=== PATIENT | male | born 1960 | race Caucasian/White ===

== ENCOUNTER 2021-06-01 18:40 | Observation (INO) | payer OTHER ==
[~2021-06-01] VITALS: Ht 167.6 cm; Wt 89.7 kg
[~2021-06-01 18:40] MED LIST: ALBU90OI INH; ALBU90OI6 INH; Albuterol2.5 MG/0.5 INH; FLUSAL1005 INH; HYDACE5 PO; IBUP800 PO; Monodox100 MG PO; NAPR500 PO; Naprosyn500 MG PO; Prednisone20 MG PO; QUET100 PO; TRAZ50 PO; Ultram50 MG PO
[2021-06-01 21:30] LABS: Calcium, Ionized (POC) 1.14 mmol/L (1.10-1.46); Chloride (POC) 104 mmol/L (98-108); Creatinine (POC) 1.4 mg/dL (0.8-1.3); Glucose (ISTAT POC) 100 mg/dL (70-99); Hemoglobin (POC) 14.6 g/dL (13.5-17.5); Potassium (POC) 4.5 mmol/L (3.5-5.5); Sodium (POC) 137 mmol/L (135-148); Total CO2 (POC) 23 mmol/L (21-32)
--- NOTE | 2021-06-02 01:00 | NUR ---
ADMIT ARRIVE TO 325 @3624 VIA W/C SBY ASSIST TO BED. ADMITTED FOR L SIDE RIB FX. ORIENTED TO & CALL LIGHT.
--- NOTE | 2021-06-02 04:56 | NUR ---
SHIFT SUMMARY ADMITTED FOR MULTIPLE RIB FX L SIDE FROM SLIP/FALL IN [place] 2 DAYS PRIOR. AOX4. VSS. TREMORS TO BUE, ANXIOUS, PACING AROUND RM, FIGETING, UNABLE TO SIT STILL, DIAPHORETIC. STATES HE DRINKS ROUGHLY 5 BEERS QOD & LAST DRINK WAS 06/01/21. REPORTS 8/10 SHARP PAIN L SIDE UNDER ARM RADIATING TO L BACK. INFORMED DR ULLOA & HE ORDERED FENTANYL, PT STATED VERY LITTLE TO NO RELIEF, HOWEVER ABLE TO REST COMFORTABLY. PAIN c DEEP BREATHS & COUGHING. INSPIRATORY & EXPIRATORY COARSE WHEEZES HEARD T/O LUNGS, HX ASTHMA, DR ULLOA ORDERED PRN BREATHING TX. DENIES N/V. ABD FIRM ROUND DISTENDED, HAS BEEN NPO PER ORDERS. CALL LIGHT IN REACH & PT ABLE TO MAKE NEEDS KNOWN. WCTM.
--- NOTE | 2021-06-02 17:42 | NUR ---
SHIFT SUMMARY PT AxOx4. PLEASANT AND COOPERATIVE WITH CARE. PT HAD Q4 CIWA CHECKS. PT REPORTS FEELING ANXIOUS AND PAINFUL T/O THIS SHIFT. MEDICATED PER EMAR. PT ALSO USED ICE FOR RIB FX PAIN. PER DR WILKINS, PT WILL LIKELY DC TOMORROW. PHYSICAL THERAPY CLEARED PATIENT FROM THERAPY. PT INDEPENDENT IN THE ROOM. PT REQUESTED BREATHING TX FOR SOME SOB AND WHEEZING. RT CALLED FOR BREATHING TX. PT HAS HX OF ASTHMA. VITALS REVIEWED. PT CURRENTLY RESTING IN CHAIR WATCHING TV. CALL LIGHT IN REACH. PT DENIES ANY NEEDS AT THIS TIME.
--- NOTE | 2021-06-03 05:31 | NUR ---
SHIFT SUMMARY AOX4. VSS. REPORTS CONSTANT 7-8/10 PAIN IN L SIDE WHERE RIB FX ARE, MEDICATED PER EMAR ORDERS FOR PAIN & PT APPLIED ICE. CIWA 8-10 THIS SHIFT, MEDICATED 2X c ATIVAN, HAS TREMORS, ANXIOUSNESS & RESTLESSNESS. EXPIRATORY WHEEZES, RECIEVED BREATHING TX PER RT, SPO2 >90% ON RA. POSSIBLE DC HOME TODAY. CALL LIGHT IN REACH. WCTM.
[2021-06-03 08:12] LABS: BASOPHILS ABSOLUTE AUTO 0.04 K/mm3 (0.00-0.23); BASOPHILS PERCENT AUTO 1 % (0-2); EOSINOPHILS ABSOLUTE AUTO 0.41 K/mm3 (0.00-0.68); EOSINOPHILS PERCENT AUTO 5 % (0-6); Hematocrit 36.4 % (37.0-53.0); Hemoglobin 12.3 g/dL (13.5-17.5); IMMATURE GRAN ABSOLUTE AUTO 0.06 K/mm3 (0.00-0.10); IMMATURE GRAN PERCENT AUTO 1 % (0-1); LYMPHOCYTES ABSOLUTE AUTO 0.81 K/mm3 (0.84-5.20); LYMPHOCYTES PERCENT AUTO 10 % (21-46); MONOCYTES ABSOLUTE AUTO 0.79 K/mm3 (0.16-1.47); MONOCYTES PERCENT AUTO 9 % (4-13); Mean Corpuscular HGB 34.7 pg (26.0-34.0); Mean Corpuscular HGB Conc 33.8 g/dL (31.5-36.5); Mean Corpuscular Volume 103 fL (80-100); Mean Platelet Volume 10.7 fL (9.1-12.4); NEUTROPHILS ABSOLUTE AUTO 6.34 K/mm3 (1.96-9.15); NEUTROPHILS PERCENT AUTO 75 % (41-73); Platelet Count 266 K/mm3 (150-400); RDW Standard Deviation 57.1 fL (35.1-46.3); Red Blood Cell Count 3.54 M/mm3 (4.30-5.90); White Blood Cell Count 8.45 K/mm3 (4.00-11.30)
[2021-06-03 08:46] LABS: Alanine Aminotransfer (ALT/SGP 44 U/L (12-78); Albumin, Blood 3.3 g/dL (3.4-5.0); Albumin/Globulin Ratio 0.9 (0.8-1.8); Alk Phos 91 U/L (50-136); Anion Gap 3 mmol/L (6-16); Aspartate Aminotrans (AST/SGOT 24 U/L (12-37); Bilirubin, Total 0.4 mg/dL (0.1-1.0); Blood Urea Nitrogen 14 mg/dL (8-24); Bun/Creatinine Ratio 16.9 (12.0-20.0); CO2, Blood 29 mmol/L (21-32); Calcium, Blood 8.8 mg/dL (8.5-10.1); Chloride, Blood 99 mmol/L (98-108); Creatinine, Blood 0.83 mg/dL (0.60-1.20); Globulin, Blood 3.8 g/dL (2.2-4.0); Glomerular Filtration Rate >60 (60-); Glucose, Blood 106 mg/dL (70-99); Magnesium, Blood 1.8 mg/dL (1.6-2.4); Phosphorus, Blood 3.2 mg/dL (2.5-4.9); Sodium, Blood 131 mmol/L (136-145); Total Protein, Blood 7.1 g/dL (6.4-8.2)
[2021-06-03] MEDS ORDERED: HYDR1TAB94 PO (10:35)
--- NOTE | 2021-06-03 12:27 | NUR ---
DISCHARGE PT DISCHARGED TO HOME. THIS RN EXPLAINED DISCHARGE INSTRUCTIONS AND MEDICATIONS TO PT AND HE REPORTS HE UNDERSTANDS. IV REMOVED WITHOUT DIFFICULTY. WRITTEN SCRIPT FOR PAIN MEDICATION GIVEN TO PT. PT INDEPENDENT TO PRIVATE VEHICLE. BELONGINGS WITH PT.
== END 2021-06-03 12:10 | disposition home or self-care (01) ==
LOC: ER 18:40 → SURS 23:39 → MEDS 06-02 00:43
PROVIDERS: Physician Assistant; ADMIT Surgery
DX: S22.42XA Multiple fractures of ribs, left side, initial encounter for closed fracture (principal); J44.9 Chronic obstructive pulmonary disease, unspecified; F17.200 Nicotine dependence, unspecified, uncomplicated; F10.239 Alcohol dependence with withdrawal, unspecified; D53.9 Nutritional anemia, unspecified; E87.1 Hypo-osmolality and hyponatremia; K70.0 Alcoholic fatty liver; W01.198A Fall on same level from slipping, tripping and stumbling with subsequent striking against other object, initial encounter; Y93.01 Activity, walking, marching and hiking; Y92.828 Other wilderness area as the place of occurrence of the external cause
CPT/HCPCS: 36415; 71101; 71260; 80047; 80053; 83735; 84100; 85014; 85025; 94640; 94760; 96374-59; 96375; 96375-59; 96376; 96376-59; 97161; 97530; 99285-25; A9270; G0378; J1170; J1885; J2405; J3010; J7030; Q9967

== ENCOUNTER 2021-12-28 12:01 | Emergency (ER) | payer OTHER ==
[~2021-12-28] VITALS: Ht 170.2 cm; Wt 81.7 kg
[~2021-12-28 12:01] MED LIST changes: +HYDR1TAB94 PO
== END 2021-12-28 16:13 | disposition left against medical advice (07) ==
LOC: ER 12:01
DX: R05.9 Cough, unspecified (principal); Z53.21 Procedure and treatment not carried out due to patient leaving prior to being seen by health care provider
CPT/HCPCS: 99283

== ENCOUNTER → 2022-08-04 | Outpatient (CLI) | payer OTHER ==
[2022-08-04 15:38] LABS: BASOPHILS ABSOLUTE AUTO 0.11 K/mm3 (0.00-0.23); BASOPHILS PERCENT AUTO 1 % (0-2); EOSINOPHILS ABSOLUTE AUTO 0.48 K/mm3 (0.00-0.68); EOSINOPHILS PERCENT AUTO 5 % (0-6); Hematocrit 36.9 % (37.0-53.0); Hemoglobin 12.6 g/dL (13.5-17.5); IMMATURE GRAN ABSOLUTE AUTO 0.33 K/mm3 (0.00-0.10); IMMATURE GRAN PERCENT AUTO 3 % (0-1); LYMPHOCYTES ABSOLUTE AUTO 1.13 K/mm3 (0.84-5.20); LYMPHOCYTES PERCENT AUTO 11 % (21-46); MONOCYTES PERCENT AUTO 8 % (4-13); Mean Corpuscular HGB 34.3 pg (26.0-34.0); Mean Corpuscular HGB Conc 34.1 g/dL (31.5-36.5); Mean Corpuscular Volume 101 fL (80-100); Mean Platelet Volume 9.7 fL (9.1-12.4); NEUTROPHILS ABSOLUTE AUTO 7.21 K/mm3 (1.96-9.15); NEUTROPHILS PERCENT AUTO 72 % (41-73); Platelet Count 521 K/mm3 (150-400); RDW Coefficient Variation 15.3 % (11.7-14.2); RDW Standard Deviation 54.8 fL (35.1-46.3); Red Blood Cell Count 3.67 M/mm3 (4.30-5.90); White Blood Cell Count 10.06 K/mm3 (4.00-11.30)
[2022-08-04 15:42] LABS: Bun/Creatinine Ratio 21.4 (12.0-20.0); Calcium, Blood 9.6 mg/dL (8.5-10.1); Creatinine, Blood 1.03 mg/dL (0.60-1.20); Potassium, Blood 4.3 mmol/L (3.5-5.5)
== END | disposition home or self-care (01) ==
LOC: LAB 15:32 → LAB SHORT 15:32
PROVIDERS: Physician Assistant Surgical
DX: R60.0 Localized edema (principal)
CPT/HCPCS: 80048; 83880; 85025

== ENCOUNTER 2024-10-31 19:52 | Inpatient (IN) | payer OTHER ==
[~2024-10-31] VITALS: Ht 172.7 cm; Wt 84.3 kg
[2024-10-31 21:52] LABS: Source, Urine Clean Catch
[2024-10-31 21:55] LABS: BASOPHILS ABSOLUTE AUTO 0.04 K/mm3 (0.00-0.23); BASOPHILS PERCENT AUTO 1 % (0-2); EOSINOPHILS ABSOLUTE AUTO 0.19 K/mm3 (0.00-0.68); EOSINOPHILS PERCENT AUTO 2 % (0-6); Hematocrit 40.9 % (37.0-53.0); Hemoglobin 14.4 g/dL (13.5-17.5); IMMATURE GRAN ABSOLUTE AUTO 0.05 K/mm3 (0.00-0.10); IMMATURE GRAN PERCENT AUTO 1 % (0-1); LYMPHOCYTES PERCENT AUTO 11 % (21-46); MONOCYTES ABSOLUTE AUTO 0.74 K/mm3 (0.16-1.47); MONOCYTES PERCENT AUTO 9 % (4-13); Mean Corpuscular HGB 35.1 pg (26.0-34.0); Mean Corpuscular HGB Conc 35.2 g/dL (31.5-36.5); Mean Corpuscular Volume 100 fL (80-100); Mean Platelet Volume 11.2 fL (9.1-12.4); NEUTROPHILS ABSOLUTE AUTO 6.62 K/mm3 (1.96-9.15); NEUTROPHILS PERCENT AUTO 78 % (41-73); Platelet Count 154 K/mm3 (150-400); RDW Coefficient Variation 14.2 % (11.7-14.2); RDW Standard Deviation 51.9 fL (35.1-46.3); White Blood Cell Count 8.54 K/mm3 (4.00-11.30)
[2024-10-31 21:57] LABS: Blood, Urine 1+ (Neg); Glucose Qualitative, Urine Neg (Neg); Ketones, Urine 2+ (Neg); Leukocyte Esterase, Urine 1+ (Neg); Nitrite, Urine Neg (Neg); Protein, Urine 2+ (Neg); Specific Gravity, Urine 1.025 (1.003-1.022); Urobilinogen, Urine 2+ (Normal)
[2024-10-31 22:15] LABS: Albumin, Blood 3.9 g/dL (3.4-5.0); Bilirubin, Total 0.8 mg/dL (0.1-1.0); Bun/Creatinine Ratio 20.1 (12.0-20.0); Calcium, Blood 9.4 mg/dL (8.5-10.1); Creatinine, Blood 1.79 mg/dL (0.60-1.20); Globulin, Blood 3.9 g/dL (2.2-4.0); Potassium, Blood 4.7 mmol/L (3.5-5.5); Total Protein, Blood 7.8 g/dL (6.4-8.2)
[2024-10-31 22:24] LABS: U Amphetamine Screen DETECTED; U Barbituate Screen Not Detected; U Benzodiazapine Screen Not Detected; U Buprenorphine Screen Not Detected; U Cannabinoids Screen DETECTED; U Cocaine Screen Not Detected; U Methadone Screen Not Detected; U Methamphetamine Screen DETECTED; U Opiates Screen Not Detected; U Oxycodone Screen Not Detected; U Phencyclidine Screen Not Detected
[2024-10-31 22:25] LABS: Bilirubin, Urine 1+ (Neg)
[2024-10-31 22:26] LABS: Appearance, Urine Clear (Clear); Color, Urine Yellow (P-Yellow)
[2024-10-31 22:27] LABS: Bacteria Mod /hpf; Red Blood Cells, Urine 0-2 /hpf (0-2); Squamous Epithelial Cells Few /hpf (Few); White Blood Cells, Urine 0-2 /hpf (0-5)
[2024-11-01] MEDS ORDERED: Thiamine HCl 100 MG in NS 50 ML IV ONE (01:10)
[2024-11-01] MEDS ORDERED: NS 1,000 ML IV SCH ×2 (01:10→02:00)
[2024-11-01] MEDS ORDERED: LORazepam 2 MG/ML 1ML Injection IV ONE (01:10)
[2024-11-01 01:37] LABS: Magnesium, Blood 2.1 mg/dL (1.6-2.4); Phosphorus, Blood 4.6 mg/dL (2.5-4.9)
[2024-11-01] MEDS ORDERED: ChlordiazePOXIDE 25 MG Cap PO PRN ×2 (01:50)
[2024-11-01] MEDS ORDERED: Ondansetron HCl 2 MG / ML 2ML Vial IV PRN (01:50)
[2024-11-01] MEDS ORDERED: FLU VACC TS2024-25(6MOS UP)/PF 45 MCG/0.5 ML SYRINGE IM ONE (01:50)
[2024-11-01] MEDS ORDERED: HydrALAZINE HCl 20 MG / ML 1ML Vial IV PRN (01:55)
[2024-11-01] MEDS ORDERED: LORazepam 2 MG/ML 1ML Injection IV PRN ×2 (01:55)
[2024-11-01] MEDS ORDERED: Acetaminophen 325 MG TABLET PO PRN (01:55)
[2024-11-01] MEDS ORDERED: DULERA 200 MCG-13 GM INH (01:58)
[2024-11-01] MEDS ORDERED: PROAIR RESPICL90 MCG INH (01:58)
[2024-11-01] MEDS ORDERED: LISI20 PO (01:58)
[2024-11-01] MEDS ORDERED: MONT10T PO (01:59)
[2024-11-01] MEDS ORDERED: CefTRIAXone Sodium 1,000 MG in NS 100 ML IV SCH (03:09)
[2024-11-01] MEDS ORDERED: Ipratropium/Albuterol SulF 2.5-0.5MG/3 ML Amp INH SCH (03:30)
[2024-11-01 04:00] VITALS: BP 160/89
--- NOTE | 2024-11-01 04:48 | NUR ---
ADMISSION NOTE: PATIENT ARRIVES TO ROOM VIA WHEELCHAIR AT 0357 FROM ER FOR DX'S OF HALLUCINATIONS. PATIENT TRANSFERRED TO BED c SBA. PATIENT ADMISSION, MEDRIC AND SKIN ASSESSMENT c 2 RN'S VERIFIED COMPLETED. PATIENT ORIENTATED TO ROOM AND CALL SYSTEM. PATIENT A/OX3, VISIBLE TREMORS TO BUE'S, CIWA ASSESSMENT SCORE OF 2. HYPERTENSIVE. PATIENT DENIES VISUAL AND AUDITORY HALLUCINATION. PATIENT REPORTS HEAVY ALCOHOL DRINKER (VODKA, MOONSHINE AND BEER) DAILY, LAST ALCOHOL INTAKE 10/31/24 AT 1500. PATIENT ALSO REPORTS USES METH ON/OFF FOR MANY YEARS. PATIENT ON RA, SATTING 97%, HAS DRY NONPRODUCTIVE COUGH, LUNGS COARSE AND WHEEZY T/O TO AUSCULTATION. PATIENT REPORTS SLIGHT SOB c AMBULATION. PATIENT REPORTS SMOKES CIGARETTE A PACK DAILY. PATIENT OFFERED NICOTINE PATCH. PATIENT STATED, "YES, I'M WILLING TO TRY." PATIENT HAS EXCORIATION TO GROIN AREA, REDNESS DRY AND SCALLY TO BLE'S. PATIENT HAS PIV TO LFA INFUSING NS. PATIENT PLACED ON CONTACT ISOLATION FOR HX OF MRSA. CALL LIGHT IN REACH.
[2024-11-01 05:52] LABS: BASOPHILS ABSOLUTE AUTO 0.05 K/mm3 (0.00-0.23); BASOPHILS PERCENT AUTO 1 % (0-2); EOSINOPHILS ABSOLUTE AUTO 0.47 K/mm3 (0.00-0.68); EOSINOPHILS PERCENT AUTO 7 % (0-6); Hematocrit 36.8 % (37.0-53.0); Hemoglobin 12.8 g/dL (13.5-17.5); IMMATURE GRAN ABSOLUTE AUTO 0.04 K/mm3 (0.00-0.10); IMMATURE GRAN PERCENT AUTO 1 % (0-1); LYMPHOCYTES ABSOLUTE AUTO 0.96 K/mm3 (0.84-5.20); LYMPHOCYTES PERCENT AUTO 14 % (21-46); MONOCYTES ABSOLUTE AUTO 0.61 K/mm3 (0.16-1.47); MONOCYTES PERCENT AUTO 9 % (4-13); Mean Corpuscular HGB 35.5 pg (26.0-34.0); Mean Corpuscular HGB Conc 34.8 g/dL (31.5-36.5); Mean Corpuscular Volume 102 fL (80-100); Mean Platelet Volume 11.4 fL (9.1-12.4); NEUTROPHILS ABSOLUTE AUTO 4.62 K/mm3 (1.96-9.15); NEUTROPHILS PERCENT AUTO 69 % (41-73); Platelet Count 150 K/mm3 (150-400); RDW Coefficient Variation 14.4 % (11.7-14.2); RDW Standard Deviation 53.6 fL (35.1-46.3); Red Blood Cell Count 3.61 M/mm3 (4.30-5.90); White Blood Cell Count 6.75 K/mm3 (4.00-11.30)
[2024-11-01 06:05] LABS: Albumin, Blood 3.4 g/dL (3.4-5.0); Bilirubin, Total 0.6 mg/dL (0.1-1.0); Bun/Creatinine Ratio 21.1 (12.0-20.0); Calcium, Blood 8.9 mg/dL (8.5-10.1); Creatinine, Blood 1.61 mg/dL (0.60-1.20); Globulin, Blood 3.5 g/dL (2.2-4.0); Potassium, Blood 3.8 mmol/L (3.5-5.5); Total Protein, Blood 6.9 g/dL (6.4-8.2)
[2024-11-01 07:25] VITALS: BP 140/86
[2024-11-01] MEDS ORDERED: Folic Acid 1 MG in NS 50 ML IV SCH ×2 (09:00)
[2024-11-01] MEDS ORDERED: Enoxaparin 40 MG/0.4 ML SYR SC SCH (09:00)
[2024-11-01] MEDS ORDERED: Lactated Ringer's 1,000 ML IV SCH (12:00)
[2024-11-01] MEDS ORDERED: Miconazole Nitrate 2% 85 GM PWD TOP SCH ×2 (12:00→21:00)
[2024-11-01] MEDS ORDERED: Nicotine 21 MG PATCH TOP SCH (13:00)
[2024-11-01 14:08] VITALS: BP 131/88
[2024-11-01] MEDS ORDERED: Thiamine HCl 250 MG in NS 100 ML IV SCH (16:00)
--- NOTE | 2024-11-01 17:44 | NUR ---
SHIFT SUMMARY MR ATKINS DENIES HAVING VISUAL OR AUDITORY HALLUCINATIONS TO ME TODAY. CIWA CHECKED SEVERAL TIMES, SCORED BETWEEN 5 AND 8. GIVEN 1MG ATIVAN IV WHEN CIWA WAS 8 AND SYMPTOMS OF HEADACHE AND SWEATS WENT AWAY. HE IS ORIENTATED TO SELF, PLACE, DATE, SITUATION. ON CONTINUOUS PULSE OX ON ROOM AIR. MOSTLY IN THE 90S BUT THERE WAS A SHORT EPISODE WHEN HE WAS SLEEPING AND O2 SAT DECREASED TO 70S, BACK UP TO 90S WHEN HE WAS WOKEN AND TOOK A FEW DEEP BREATHS. DR NGUYEN NOTIFIED OF LOW SAT EPISODE AND CIWA SCORE OF 8. 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 HE HAS TENDER BRIGHT RED AREA AROUND HIS GROIN AND RED SKIN BETWEEN HIS BUTTOCKS. THIS WAS CLEANSED AND NYSTATIN POWDER APPLIED. HE SIGNED A RELEASE OF MEDICAL RECORDS FOR [facility] WITH A VIEW TO RELEASING HIM TO REHAB WITH THEM. INN CHAIR NOW, CHAIR ALARM IN USE AND CALL LIGHT IN REACH.
[2024-11-01 19:35] VITALS: BP 129/81
[2024-11-02] VITALS (16 sets, daily range): BP systolic 129–189; BP diastolic 77–112
[2024-11-02 06:20] LABS: Hematocrit 36.7 % (37.0-53.0); Hemoglobin 12.6 g/dL (13.5-17.5)
[2024-11-02 06:57] LABS: Albumin, Blood 3.1 g/dL (3.4-5.0); Albumin/Globulin Ratio 0.9 (0.8-1.8); Bilirubin, Total 0.4 mg/dL (0.1-1.0); Bun/Creatinine Ratio 25.4 (12.0-20.0); Calcium, Blood 8.8 mg/dL (8.5-10.1); Creatinine, Blood 0.94 mg/dL (0.60-1.20); Globulin, Blood 3.5 g/dL (2.2-4.0); Potassium, Blood 3.8 mmol/L (3.5-5.5); Total Protein, Blood 6.6 g/dL (6.4-8.2)
[2024-11-02] MEDS ORDERED: Thiamine HCl 100 MG in NS 50 ML IV SCH (09:00)
[2024-11-02] MEDS ORDERED: Nicotine 21 MG PATCH TOP SCH (09:00)
--- NOTE | 2024-11-02 16:48 | NUR ---
SHIFT NOTE: PT A/OX4 ABLE TO MAKE HIS NEEDS KNOWN BUT IS IMPULSIVE AND GETS OUT OF BED WITHOUT ASSISTANCE. PT EDUCATED ON NEED TO CALL FOR ASSISTANCE DUE TO MEDICATIONS BEING ADMINISTERED. PT STATES UNDERSTANDING. PT ON RA WITH SPO2>95%, WHEN SLEEPING HE DROPS DOWN TO THE LOW 60S. 2L NC ON WHEN SLEEPING TO MAINTAIN SPO2>90%. HE IS CONT AND USES URINAL AT BEDSIDE. HE TAKES HIS MEDS WHOLE WITH WATER. NURSE AT [facility] UPDATED ON PATIENTS CONDITION. HE HAS BEEN MEDICATED FOR CIWAS PER EMAR.
--- NOTE | 2024-11-02 19:16 | NUR ---
PT CIWA INCREASED TO 17, MEDICATED PER JAN. MD NOTIFIED, ORDERS TO TRANSFER TO ICU
[2024-11-02] MEDS ORDERED: dexmedeTOMIDine 100 ML IV SCH (19:35)
--- NOTE | 2024-11-02 21:08 | NUR ---
PT ARRIVES TO ROOM ICU 1 AT 2030 THIS EVENING. PT IS ABLE TO PIVOT TRANSFER FROM BED TO ICU BED WITH 2 PERSON HANDS ON ASSIST. PT SOMEWHAT UNSTEADY ON HIS FEET. DOES ASK THE QUESTION IF "YOU GUYS ARE REAL?" WONDERING IF THE STAFF IN ROOM WAS JUST HALLUCINATION. PRECEDEX INFUSING CURRENTLY AT 0.4 MCG'S/KG/HOUR. PT WAS PREMEDICATED PRIOR TO LEAVING MEDICAL FLOOR WITH 100 MG LIBRIUM, AND 4 MG ATIVAN. BED ALARM IN USE ON ICU BED FOR PT SAFETY. WILL REVIEW CHART AND PLAN OF CARE FOR THIS PT.
--- NOTE | 2024-11-02 21:10 | NUR ---
NOTIFIED PTS MOTHER GRISELDA OF TRANSFER TO ICU AND PLAN OF CARE VIA TELEPHONE
--- NOTE | 2024-11-02 23:15 | NUR ---
PT DEMONSTRATES BEING IMPULSIVE. HAS SET OFF THE BED ALARM TRYING TO GET OUT OF BED WITHOUT BEING REDIRECTABLE EASILY. HAVE INCRIMENTED PRECEDEX DRIP UP TO 0.7MCG'S/KG/HOUR. DID PLACE MALE PUREWICK SECONDARY TO PT BEING INCONTINENT. FREQUENT SAFETY CHECKS BEING DONE.
[2024-11-03] VITALS (85 sets, daily range): BP systolic 87–154; BP diastolic 57–116
[2024-11-03 00:18] LABS: Base Excess Venous 4.8 mmol/L; Bicarbonate Venous 27.2 mmol/L (24.0-30.0); PCO2 Venous 46.4 mmHg (38-42); pH Blood Venous 7.41 (7.34-7.37)
[2024-11-03] MEDS ORDERED: NS 250 ML IV PRN (00:20)
[2024-11-03 05:13] LABS: Albumin/Globulin Ratio 0.9 (0.8-1.8); Bilirubin, Total 0.2 mg/dL (0.1-1.0); Bun/Creatinine Ratio 13.7 (12.0-20.0); Calcium, Blood 8.2 mg/dL (8.5-10.1); Creatinine, Blood 1.02 mg/dL (0.60-1.20); Globulin, Blood 3.4 g/dL (2.2-4.0); Potassium, Blood 4.4 mmol/L (3.5-5.5); Total Protein, Blood 6.4 g/dL (6.4-8.2)
--- NOTE | 2024-11-03 06:04 | NUR ---
PT HAS REMAINED ON PRECEDEX SINCE TRANSFER TO ICU. PT HAS HAD INCREASING END PHASE EXPIRATORY WHEEZES. HAS BEEN TACHYPNEIC. RESPIRATORY RATS INTO 30'S TO 40'S. DID PLACE 2 LITERS O2 PER NASAL CANNULA THAT FOR A PERIOD OF TIME REDUCED RESPIRATORY RATE INTO 20'S. HAS MAINTAINED O2 SATURATIONS > 90 PERCENT. PT DOES AWAKEN AND HAVE A RATHER STRONG COUGH EFFORT. PT HAS BEEN ABLE TO USE PUREWICK AFFECTIVELY. WILL CONTINUE TO MONITOR PT, AND WILL REPORT OFF TO ONCOMING RN.
--- NOTE | 2024-11-03 07:49 | NUR ---
ASSUMED CARE OF PATIENT AT APPROXIMATELY 0700. REPORT RECEIVED FROM DIONISIO RUBIO. PT SLEEPING IN BED, SON AND FRIEND AT BEDSIDE. BREIFLY WITHDRAWS FROM NOXIOUS STIMULI, SUCH BP CUFF INFLATION - OTHERWISE IN DEEP SEDATION WTIH RASS OF -4, AND PRECEDEX INFUSING AT 0.5 MCG/KG/HR. CONTINOUS CARDIAC MONITORING IN PLACE. SR WITH HR IN 80'S-90'S. HYPOTENSIVE BUT MAP REMAINS > 65. ON 2LPM O2 VIA NC WITH O2 SATURATION OF 94%. PT HAD BRIEF COUGHING FIT DURING BEDSIDE REPORT WITH SUCCESSFUL PRODUCTION OF SPUTUM THAT WAS COLLECTED AND SENT FOR CULTURE. PUREWICK IN PLACE. SEE SHIFT ASSESSMENT FOR FULL DETAILS.
[2024-11-03] MEDS ORDERED: Lactated Ringer's 500 ML IV SCH ×2 (07:50→11:00)
[2024-11-03] MEDS ORDERED: Albuterol 2.5 MG/3 ML VIAL INH PRN ×2 (13:20→15:55)
[2024-11-03] MEDS ORDERED: Ipratropium/Albuterol SulF 2.5-0.5MG/3 ML Amp INH SCH (15:51)
--- NOTE | 2024-11-03 17:48 | NUR ---
SHIFT SUMMARY PT AROUSES TO VERBAL/NOXIOUS STIMULI ONLY. ORIENTED TO PERSON ONLY. PRECEDEX INFUSING AT 0.5 MCG/KG/HR. MEDICATED ONCE WITH ATIVAN PER EMAR FOR CIWA OF 12 AND INCREASED AGITATION WITH BIPAP MASK. CONTINOUS CARDIAC MONITORING IN PLACE SHOWED SR WITH HR IN 70'S-90'S. BP STABLE WITH MAP > 65. ON BIPAP WITH SETTINGS OF 14/7 AND 25%. BILATERAL LS WITH WHEEZES. TOOK ONE BREAK FROM BIPAP AND BECAME TACHYPNEIC IN THE 40'S. REAPPLIED WITH BREATHING TX PER EMAR. PUREWICK IN PLACE WITH 150 DARK COLORED URINE OUT. NO BM THIS SHIFT. PG TO NOHEMI DOES NOT DRAW, PIV TO LA. WILL CONTINUE TO MONITOR AND REPORT TO ONCOMING RN.
--- NOTE | 2024-11-03 21:01 | NUR ---
BEGINNING OF SHIFT PT LYING IN BED ON BIPAP, TACHYPNEIC AND WHEEZING. PT SOMNOLENT AND STIRS TO NOISE AND TOUCH. PT DOES NOT FOLLOW COMMANDS AND OCCASIONALLY RESISTS TREATMENT RELATED MOVEMENT. LEVEL OF ORIENTATION DIFFICULT TO ASSESS BUT PT IS CLEARLY CONFUSED. PRECEDEX INFUSING AT 0.5 MCG/KG/HR. WILL MONITOR FOR SIGNS OF ETOH W/D AND DOCUMENT/TREAT ACCORDINGLY. PT MUSCLES ARE STIFF, PARTICULARLY UPPER EXTREMITIES, WITH FIST IN BALL. LUNGS ARE WHEEZY WITH CRACKLES IN THE BASES, WORSE ON THE RIGHT. PT IN SINUS RHYTHYM WITH STABLE BP. PUREWICK IN PLACE.
[2024-11-04] VITALS (86 sets, daily range): BP systolic 69–185; BP diastolic 46–151
[2024-11-04 05:07] LABS: PCO2 Arterial 68.6 mmHg (35-45)
[2024-11-04 05:08] LABS: pH Blood Arterial 7.22 (7.35-7.45)
--- NOTE | 2024-11-04 05:17 | NUR ---
PROVIDER CALL NOTIFIED BOTH RESIDENT AND HOSPITALIST REGARDING PT'S DECREASE IN MENTATION, OBTAINED ORDER FOR BLOOD GAS. ABG WORSE, NOTIFIED HOSPITALIST AGAIN TO COME SEE PT. RESIDENT NOTIFIED WELL.
[2024-11-04] MEDS ORDERED: NS 1,000 ML IV ONE ×3 (05:31→10:00)
[2024-11-04] MEDS ORDERED: propofoL 100 ML IV ONE (05:42)
[2024-11-04] MEDS ORDERED: propofoL 100 ML IV SCH (05:45)
[2024-11-04] MEDS ORDERED: NS 1,000 ML IV SCH ×2 (05:45→10:00)
--- NOTE | 2024-11-04 05:48 | NUR ---
INTUBATION DR ULLOA HERE AND DECISION TO INTUBATE MADE. AT 0530 15MG OF ETOMIDATE AND 100MG ROCURONIUM ADMINISTERED. 0534 INTUBATION OCCURRED: 8.0 24 AT THE GUMS WITH POSITIE COLOR CHANGE AND BILATERAL BS. PENDING OG AND CXR.
[2024-11-04] MEDS ORDERED: Albuterol 2.5 MG/3 ML VIAL INH SCH (05:55)
[2024-11-04] MEDS ORDERED: Ampicillin Sod/Sulbactam Sod 3 GM in NS 100 ML IV SCH (06:00)
[2024-11-04 06:35] LABS: Anion Gap Unable to Calculate mmol/L (3-11)
[2024-11-04 06:36] LABS: Bun/Creatinine Ratio Unable to Calculate (12.0-20.0)
[2024-11-04 06:37] LABS: Albumin/Globulin Ratio Unable to Calculate (0.8-1.8); Globulin, Blood Unable to Calculate g/dL (2.2-4.0)
[2024-11-04 07:07] LABS: BASOPHILS ABSOLUTE AUTO 0.02 K/mm3 (0.00-0.23); BASOPHILS PERCENT AUTO 0 % (0-2); EOSINOPHILS ABSOLUTE AUTO 0.04 K/mm3 (0.00-0.68); EOSINOPHILS PERCENT AUTO 1 % (0-6); Hemoglobin 12.1 g/dL (13.5-17.5); IMMATURE GRAN ABSOLUTE AUTO 0.03 K/mm3 (0.00-0.10); IMMATURE GRAN PERCENT AUTO 1 % (0-1); LYMPHOCYTES ABSOLUTE AUTO 0.25 K/mm3 (0.84-5.20); LYMPHOCYTES PERCENT AUTO 5 % (21-46); MONOCYTES ABSOLUTE AUTO 0.41 K/mm3 (0.16-1.47); MONOCYTES PERCENT AUTO 8 % (4-13); Mean Corpuscular HGB 35.4 pg (26.0-34.0); Mean Corpuscular HGB Conc 33.6 g/dL (31.5-36.5); Mean Corpuscular Volume 105 fL (80-100); Mean Platelet Volume 9.8 fL (9.1-12.4); NEUTROPHILS ABSOLUTE AUTO 4.12 K/mm3 (1.96-9.15); NEUTROPHILS PERCENT AUTO 85 % (41-73); Platelet Count 114 K/mm3 (150-400); RDW Coefficient Variation 14.5 % (11.7-14.2); RDW Standard Deviation 56.6 fL (35.1-46.3); Red Blood Cell Count 3.42 M/mm3 (4.30-5.90); White Blood Cell Count 4.87 K/mm3 (4.00-11.30)
[2024-11-04 07:24] LABS: Albumin, Blood 2.8 g/dL (3.4-5.0); Albumin/Globulin Ratio 0.8 (0.8-1.8); Bilirubin, Total 0.4 mg/dL (0.1-1.0); Bun/Creatinine Ratio 16.9 (12.0-20.0); Calcium, Blood 8.7 mg/dL (8.5-10.1); Creatinine, Blood 0.89 mg/dL (0.60-1.20); Globulin, Blood 3.6 g/dL (2.2-4.0); Potassium, Blood 4.1 mmol/L (3.5-5.5); Total Protein, Blood 6.4 g/dL (6.4-8.2)
--- NOTE | 2024-11-04 07:38 | NUR ---
CARE ASSUMPTION DURING BEDSIDE SHIFT REPORT W PROMISE RN THE PT IS LYING IN FOWLERS POSITION INTUBATED ON THE VENTILATOR. THIS RN DOING ORAL SUCTIONING WHICH CAUSED THE PT TO BECOME VERY AGITATED. PROPOFOL INFUSING AT 40 MCG/KG/MIN. PRECEDEX GTT STARTED AT THAT TIME W PROPOFOL GTT BY THIS RN. PT'S MONITOR SHOWING SR 90'S. BP WNL. NS INFUSING AT 75ML/HR. PT HAS CUELLO CATHETER THAT IS PATENT AND DRAINING CLEAR YELLOW URINE.
--- NOTE | 2024-11-04 07:44 | NUR ---
SHIFT SUMMARY PT LYING IN BED, VENTILATED AND SEDATED. SINCE VENTILATION, PT HAS REQUIRED MORE PROPOFOL EVERY 30/40 MIN. HE IS CURRENTLY ON 40 MCG/KG/MIN. STARTED AT 20. PT IN SINUS RHYTHYM WITH STABLE BP. ACVC VENT SETTINGS. OG TUBE TO LIS. CUELLO IN PLACE DRAINING YELLOW URINE TO GRAVITY. NS INFUSING AT 75ML/HR FOLLOWING A 250 BOLUS AFTER THE INTUBATION. REPORT GIVEN TO ONCOMING NURSE.
[2024-11-04] MEDS ORDERED: Vancomycin HCL 2,500 MG in NS 500 ML IV ONE (07:55)
[2024-11-04] MEDS ORDERED: Cetylpyridinium Chloride 1 EA MISC MT SCH (08:00)
[2024-11-04 08:33] LABS: Base Excess Venous -0.8 mmol/L; Bicarbonate Venous 23.9 mmol/L (24.0-30.0); pH Blood Venous 7.41 (7.34-7.37)
[2024-11-04 08:53] LABS: Albumin, Blood 2.7 g/dL (3.4-5.0); Albumin/Globulin Ratio 0.8 (0.8-1.8); Bilirubin, Total 0.3 mg/dL (0.1-1.0); Bun/Creatinine Ratio 15.4 (12.0-20.0); Calcium, Blood 8.5 mg/dL (8.5-10.1); Creatinine, Blood 0.97 mg/dL (0.60-1.20); Globulin, Blood 3.4 g/dL (2.2-4.0); Potassium, Blood 3.9 mmol/L (3.5-5.5); Total Protein, Blood 6.1 g/dL (6.4-8.2)
[2024-11-04] MEDS ORDERED: Haloperidol Lactate Inj. 5 MG/ML Injection IV ONE (08:55)
[2024-11-04] MEDS ORDERED: FentaNYL Citrate 50 MCG/ML 2 ML Injection IV ONE (08:55)
[2024-11-04] MEDS ORDERED: Haloperidol Lactate Inj. 5 MG/ML Injection IV PRN (09:10)
[2024-11-04] MEDS ORDERED: FentaNYL Citrate 50 MCG/ML 2 ML Injection IV PRN (09:10)
[2024-11-04] MEDS ORDERED: Ipratropium/Albuterol SulF 2.5-0.5MG/3 ML Amp INH SCH (09:15)
[2024-11-04] MEDS ORDERED: LORazepam 2 MG Tab PT SCH (10:00)
[2024-11-04] MEDS ORDERED: Hydrogen Peroxide 1.5 % Solution MT SCH (12:00)
--- NOTE | 2024-11-04 15:56 | NUR ---
RESPIRATORY EVENT THIS RN LIGHTENING SEDATION THE PT WAS UNRESPONSIVE DUE TO SEDATION. PROPOFOL GTT TURNED DOWN TO 20 MCG/KG/MIN AND PRECEDEX GTT AT 0/2 MCG/KG/MIN WHEN THE PT AWAKENED AND BEGAN TO TIGHTEN HIS BODY FIGHTING THE RESTRAINTS AND THE VENTILATOR. PT NOT PULLING TIDAL VOLUMES AND HAD SPO2 <70%. PT GIVEN 100 MCG IV FENTANYL A SEDATION ADJUNCT AND HIS BODY RELAXED AND BEGAN PULLING ADEQUATE TIDAL VOLUMES ON THE VENTILATOR REGAINING SPO2 >92%. DR. CARRASCO CALLED AND NOTIFIED OF EVENT. DR. CARRASCO INSTRUCTING THIS RN TO LEAVE THE PT'S SEDATION HIGH ENOUGH TO PREVENT THESE EVENTS AND TO PASS ON TO FLIGHT SOFTWARE TEST ENGINEER TO NOT LIFT THE PT'S SEDATION FOR SAT IN THE AM. DIRECTOR OF PERSONNEL AND RT NOTIFIED OF EVENT.
--- NOTE | 2024-11-04 17:55 | NUR ---
DAY SHIFT SUMMARY PT BEGAN THE SHIFT VERY AGITATED THRASHING IN BED TO WHICH HE THEN RECIEVED ADDITIONAL SEDATION MEDICATION FOR. PT SPENT NEXT SEVERAL HOURS OR THE SHIFT W A RASS OF -3 DESPITE LOWERING SEDATION. ONCE THE PT AWOKE HE BECAME VERY TENSE NOT PULLING ANY VOLUMES ON THE VENTILATOR UNTIL HE WAS GIVEN ADDITIONAL SEDATION ADJUNCT THAT HE RELAXED AND AGAIN BEGAN BREATHING NORMALLY ON THE VENT, SEE PREVIOUS NOTE. PT REMAINS ON VENT W SETTINGS AC/PC 14/18/8.0 W 30% FIO2. PT ON PROPOFOL AND PRECEDEX GTT'S FOR SEDATION AND RECIEVING Q6H ATIVAN PT PER DR. CARRASCO. BP WNLA DN STABLE FOLLOWING 1L NS BOLUS. PT HAS NS INFUSING AT 75ML/HR. PT HAD TRICKLE TUBE FEEDS STARTED AT 10ML/HR. CBG'S STABLE. PT AFEBRILE. SECRETIONS HAVE BEEN SCANT PER ET TUBE BUT THICK AND OBRIEN IN COLOR. CUELLO PATENT AND DRAINING TO GRAVITY. WILL REPORT TO ONCOMING RN.
[2024-11-04] MEDS ORDERED: Insulin Regular 100 UNIT/ML 10ML Vial SC SCH (18:00)
[2024-11-04] MEDS ORDERED: Midazolam HCl 1MG / ML 2ML Vial IV ONE (18:29)
[2024-11-04] MEDS ORDERED: Rocuronium Bromide 10 MG/ML 5ML Injection IV ONE (18:29)
[2024-11-04] MEDS ORDERED: Vancomycin HCL 1,500 MG in NS 250 ML IV SCH (20:00)
--- NOTE | 2024-11-04 20:50 | NUR ---
START OF SHIFT PT LYING IN BED, VENTILATED AND SEDATED. HE IS CURRENTLY ON 40 MCG/KG/MIN OF PROPOFOL AND 0.3 OF PRECEDEX. PT IN SINUS RHYTHYM WITH STABLE BP. ACPC VENT SETTINGS. OG TUBE WITH TRICLE TF. CUELLO IN PLACE DRAINING YELLOW URINE TO GRAVITY. NS INFUSING AT 75ML/HR. SOFT RESTRAINTS IN PLACE.
[2024-11-05] VITALS (35 sets, daily range): BP systolic 93–150; BP diastolic 62–96
[2024-11-05 03:54] LABS: Hematocrit 34.4 % (37.0-53.0); Hemoglobin 11.4 g/dL (13.5-17.5); Mean Corpuscular HGB 34.8 pg (26.0-34.0); Mean Corpuscular HGB Conc 33.1 g/dL (31.5-36.5); Mean Corpuscular Volume 105 fL (80-100); Mean Platelet Volume 10.9 fL (9.1-12.4); Platelet Count 110 K/mm3 (150-400); RDW Coefficient Variation 14.6 % (11.7-14.2); RDW Standard Deviation 56.4 fL (35.1-46.3); Red Blood Cell Count 3.28 M/mm3 (4.30-5.90); White Blood Cell Count 4.07 K/mm3 (4.00-11.30)
[2024-11-05 04:23] LABS: Albumin, Blood 2.3 g/dL (3.4-5.0); Albumin/Globulin Ratio 0.8 (0.8-1.8); Bilirubin, Direct 0.1 mg/dL (0.0-0.3); Bilirubin, Indirect 0.2 mg/dL (0.1-0.7); Bilirubin, Total 0.3 mg/dL (0.1-1.0); Bun/Creatinine Ratio 15.7 (12.0-20.0); Creatinine, Blood 0.83 mg/dL (0.60-1.20); Phosphorus, Blood 2.9 mg/dL (2.5-4.9); Total Protein, Blood 5.3 g/dL (6.4-8.2)
[2024-11-05 04:33] LABS: BAND PERCENT MAN 32 % (0-8); BASOPHILS PERCENT MAN 0 % (0-2); EOSINOPHILS ABSOLUTE MAN 0.12 K/mm3 (0.00-0.68); EOSINOPHILS PERCENT MAN 3 % (0-6); LYMPHOCYTES ABSOLUTE MAN 0.08 K/mm3 (0.84-5.20); LYMPHOCYTES PERCENT MAN 2 % (21-46); METAMYELOCYTE ABSOLUTE MAN 0.04 K/mm3 (0.00-0.00); METAMYELOCYTE PERCENT MAN 1 % (0-0); MONOCYTES ABSOLUTE MAN 0.24 K/mm3 (0.16-1.47); MONOCYTES PERCENT MAN 6 % (4-13); MYELOCYTE ABSOLUTE MAN 0.08 K/mm3 (0.00-0.00); MYELOCYTE PERCENT MAN 2 % (0-0); SEG NEUTROPHILS PERCENT MAN 54 % (41-73); TOTAL CELLS COUNTED 100
[2024-11-05] MEDS ORDERED: Pantoprazole Sodium 40 MG Injection IV SCH (06:00)
--- NOTE | 2024-11-05 08:29 | NUR ---
ASSUMED CARE BEDSIDE REPORT FROM PROMISE NICHOLE AT 0700. PT INTUBATED AND SEDATED. VENT SETTINGS AC/PC 14/18/8/30%. LUNGS CLEAR. SMALL AMOUNT OF WHITE SPUTUM FROM ETT. PROPOFOL AND PRECEDEX GTT FOR SEDATION. RASS -5. PT DOES NOT WITHDRAW FROM PAINFUL STIMULI BUT BECOMES AGITATED c CARE, GRIMACES, COUGH, LOW TV'S. FENTANYL PRN. +COUGH/GAG. SR, RATE 70'S. BP STABLE. ABD DISTENDED, FIRM, HYPOACTIVE BT. TUBE FEEDS AT 10 ML/HR VIA OGT. CUELLO PATENT, DRAINING CLEAR YELLOW URINE TO GRAVITY. PIV X 2, POWERGLIDE TO RUE. DRESSINGS C/D/I. WILL CONTINUE PLAN OF CARE.
[2024-11-05] MEDS ORDERED: Ipratropium/Albuterol SulF 2.5-0.5MG/3 ML Amp INH SCH (09:15)
--- NOTE | 2024-11-05 11:00 | NUR ---
SEDATION VACATION PROPOFOL TITRATED DOWN. PT WITHDRAWS BLE TO PAIN. DOES NOT FOLLOW COMMANDS. UNABLE TO CONTINUE SEDATION VACATION D/T TACHYPNEA AND LOW TV. INCREASED SEDATION. PER DR CAMARENA, WITHDRAW ETT 2 CM. HANANE RT NOTIFIED. MOTHER VISITED AT BEDSIDE, UPDATED.
[2024-11-05] MEDS ORDERED: Magnesium Hydroxide Conc 10 ML UDC PT PRN (12:05)
[2024-11-05] MEDS ORDERED: Docusate Sodium 100 MG UDC PT PRN (12:05)
[2024-11-05] MEDS ORDERED: Bisacodyl 10 MG Supp PR PRN (12:05)
[2024-11-05] MEDS ORDERED: Protein Supplement 30 ML UD PT SCH (14:00)
--- NOTE | 2024-11-05 17:16 | NUR ---
SHIFT SUMMARY NO ACUTE CHANGES THIS SHIFT. REMAINS INTUBATED AND SEDATED VENT SETTINGS UNCHANGED, AC/PC 14/18/8/30%. LUNGS CLEAR. SMALL AMOUNT OF THIN CLEAR SECRETIONS FROM ETT. PROPOFOL AND PRECEDEX GTT INFUSING. SCHEDULED ATIVAN PT, FENTANYL PRN. RASS -5. SEE SEDATION VACATION NOTE. SR, RATE 60'S. BP STABLE. TUBE FEEDS INCREASED. ABD DISTENDED, FIRM, HYPOACTIVE BT. UCELLO PATENT, DRAINED 500 ML CLEAR YELLOW URINE TO GRAVITY. SON AND MOTHER UPDATED AT BEDSIDE THIS SHIFT. WILL CONTINUE PLAN OF CARE UNTIL REPORT TO ONCOMING NURSE.
[2024-11-05 20:13] LABS: Vancomycin, Trough 22.6 ug/mL (5.0-10.0)
--- NOTE | 2024-11-05 20:31 | NUR ---
UPDATE [facility] CRITICAL 22.6 PHARMACY AND CHARGE NURSE NOTIFIED
--- NOTE | 2024-11-05 20:49 | NUR ---
UPDATE PHARMACY WILL UPDATE VANCO ORDER.
[2024-11-06] VITALS (43 sets, daily range): BP systolic 83–145; BP diastolic 58–103
[2024-11-06] MEDS ORDERED: Vancomycin HCL 1,250 MG in NS 250 ML IV SCH
[2024-11-06 03:38] LABS: Hematocrit 32.7 % (37.0-53.0); Hemoglobin 10.7 g/dL (13.5-17.5); Mean Corpuscular HGB Conc 32.7 g/dL (31.5-36.5); Mean Corpuscular Volume 107 fL (80-100); Mean Platelet Volume 10.9 fL (9.1-12.4); Platelet Count 108 K/mm3 (150-400); RDW Coefficient Variation 15.2 % (11.7-14.2); RDW Standard Deviation 60.1 fL (35.1-46.3); Red Blood Cell Count 3.06 M/mm3 (4.30-5.90); White Blood Cell Count 3.05 K/mm3 (4.00-11.30)
[2024-11-06 03:51] LABS: Anion Gap 8 mmol/L (3-11); Blood Urea Nitrogen 13 mg/dL (8-24); CO2, Blood 25 mmol/L (21-32); Chloride, Blood 110 mmol/L (98-108); Creatinine, Blood 0.93 mg/dL (0.60-1.20); Glomerular Filtration Rate 92 (60-); Glucose, Blood 118 mg/dL (70-99); Magnesium, Blood 1.6 mg/dL (1.6-2.4); Sodium, Blood 139 mmol/L (136-145)
[2024-11-06 03:58] LABS: BAND PERCENT MAN 28 % (0-8); BASOPHILS PERCENT MAN 0 % (0-2); EOSINOPHILS ABSOLUTE MAN 0.24 K/mm3 (0.00-0.68); EOSINOPHILS PERCENT MAN 8 % (0-6); LYMPHOCYTES ABSOLUTE MAN 0.15 K/mm3 (0.84-5.20); LYMPHOCYTES PERCENT MAN 5 % (21-46); MONOCYTES ABSOLUTE MAN 0.33 K/mm3 (0.16-1.47); MONOCYTES PERCENT MAN 11 % (4-13); MYELOCYTE ABSOLUTE MAN 0.03 K/mm3 (0.00-0.00); MYELOCYTE PERCENT MAN 1 % (0-0); NEUTROPHILS ABSOLUTE MAN 2.28 K/mm3 (1.96-9.15); SEG NEUTROPHILS PERCENT MAN 47 % (41-73); TOTAL CELLS COUNTED 100
--- NOTE | 2024-11-06 06:48 | NUR ---
SHIFT SUMMARY PATIENT TOLERATED VENT FOR MOST OF NIGHT. NOT ALERT OF ORIENTED. GAVE PRN PAIN MEDS FOR PAIN X2. SBP IN THE 100-110'S, HR IN 60-70'S. HAS CUELLO DRAINING TO GRAVITY. HAD A BED BATH WHICH AGITATED PATIENT. VENT SETTING AC/PC 14/18/8/30%. PROPOFOL RUNNING @ 35MCG/MIN AND PRECEDEX @ 0.4MCG.
--- NOTE | 2024-11-06 07:53 | NUR ---
ASSUMED CARE BEDSIDE REPORT FROM SALMA NICHOLE AT 0700. PT INTUBATED AND SEDATED. VENT SETTINGS AC/PC 14/18/8/30%. LUNGS c EXP WHEEZE THROUGHOUT. SCANT THIN WHITE SECRETIONS FROM ETT. PROPOFOL AND PRECEDEX GTT FOR SEDATION, RASS -5. +COUGH/GAG. NO RESPONSE TO PAINFUL STIMULI. SR, RATE 60'S, BP STABLE. TUBE FEEDS AT GOAL VIA OGT. ABD DISTENDED, FIRM, HYPOACTIVE BT, BOWEL CARE PROVIDED. CUELLO PATENT, DRAINING CLEAR YELLOW URINE TO GRAVITY. POWERGLIDE TO RUE, PIV X 2, DRESSINGS C/D/I. WILL CONTINUE PLAN OF CARE.
[2024-11-06] MEDS ORDERED: Mag Sulfate 1 GM/D5% 100ML 100 ML IV STA (08:59)
[2024-11-06] MEDS ORDERED: Furosemide 10 MG/ML 4ML Vial IV ONE (09:05)
[2024-11-06] MEDS ORDERED: NS 100 ML IV ONE (11:32)
--- NOTE | 2024-11-06 17:39 | NUR ---
PT UNABLE TO TOLERATE SEDATION VACATION THIS SHIFT AND FAILED SBT DUE TO UNCONTROLLED RESPIRATIONS. PT ALTERNATES BETWEEN RASS -5 AND VENTILATOR DYSSYNCHRONY WITH CPOT PAIN SCORES WHICH RESPONDED TO WELL TO PRN MEDICATION. NEUROLOGICAL STATUS UNCHANGED. ETT INTACT AND SECURE, ACPC. NSR, BP WITHIN PARAMETERS. CTF INFUSING VIA OGT PER ORDERS. CUELLO INTACT AND TO GRAVITY, 1650 ML UOP FOR SHIFT. BUE SOFT NV RESTRAINTS REMAIN INTACT. PIV X2, MIDLINE. PROPOFOL, PRECEDEX INFUSING PER JAN.
[2024-11-07] VITALS (38 sets, daily range): BP systolic 82–168; BP diastolic 56–116
[2024-11-07 06:06] LABS: Hematocrit 35.3 % (37.0-53.0); Hemoglobin 11.7 g/dL (13.5-17.5); Mean Corpuscular HGB 35.3 pg (26.0-34.0); Mean Corpuscular HGB Conc 33.1 g/dL (31.5-36.5); Mean Corpuscular Volume 107 fL (80-100); Mean Platelet Volume 11.2 fL (9.1-12.4); Platelet Count 114 K/mm3 (150-400); RDW Coefficient Variation 15.5 % (11.7-14.2); RDW Standard Deviation 61.2 fL (35.1-46.3); Red Blood Cell Count 3.31 M/mm3 (4.30-5.90); White Blood Cell Count 3.03 K/mm3 (4.00-11.30)
[2024-11-07 06:28] LABS: Anion Gap 8 mmol/L (3-11); Blood Urea Nitrogen 17 mg/dL (8-24); CO2, Blood 27 mmol/L (21-32); Chloride, Blood 110 mmol/L (98-108); Creatinine, Blood 0.95 mg/dL (0.60-1.20); Glomerular Filtration Rate 90 (60-); Glucose, Blood 99 mg/dL (70-99); Magnesium, Blood 1.9 mg/dL (1.6-2.4); Phosphorus, Blood 3.7 mg/dL (2.5-4.9); Sodium, Blood 141 mmol/L (136-145)
[2024-11-07 06:30] LABS: BAND PERCENT MAN 31 % (0-8); BASOPHILS PERCENT MAN 0 % (0-2); EOSINOPHILS PERCENT MAN 10 % (0-6); LYMPHOCYTES ABSOLUTE MAN 0.24 K/mm3 (0.84-5.20); LYMPHOCYTES PERCENT MAN 8 % (21-46); METAMYELOCYTE ABSOLUTE MAN 0.03 K/mm3 (0.00-0.00); METAMYELOCYTE PERCENT MAN 1 % (0-0); MONOCYTES PERCENT MAN 10 % (4-13); NEUTROPHILS ABSOLUTE MAN 2.15 K/mm3 (1.96-9.15); SEG NEUTROPHILS PERCENT MAN 40 % (41-73); TOTAL CELLS COUNTED 100
--- NOTE | 2024-11-07 06:47 | NUR ---
END OF SHIFT SUMMARY NO ACUTE EVENTS OVERNIGHT. IT WAS CHALLENGING TO ATTEMPT A RASS OF 0 TO -2 WHILE ALSO BEING VENT COMPLIENT; DURING ANY PERSONAL CARE PT RR WOULD INCREASE TO 30'S AND Vt WOULD DROP <100; UNABLE TO CONSOL OR PROPMT TO SLOW BREATH; PRN FENTANYL VERY HELPFUL BUT RASS WOULD THEN DECREASE TO -3 TO -4; PROPOFOL INFUSING NOW AT 40MCG/KG/MIN AND PRECEDEX INFUSING AT 0.4MCG/KG/HR. VENT SETTINGS AC/PC 14/8/30%, WHILE SEDATED Vt RANGE 450-600. HR 60'S. SBP 100-130'S. TF INFUSING VIA OG AT 20ML/HR (GOAL) WITH 30ML FLUSH Q4HR; NO BM SINCE 11/01/24, MILK OF MAG GIVEN LAST NIGHT WITH NO RESULTS. CUELLO IN PLACE AND DRAINING TO GRAVITY. POWERGLIDE TO RUE PATENT WITH DRESSING C/D/I. SEE SHIFT ASSESSMENT FOR FULL ASSESSMENT.
[2024-11-07] MEDS ORDERED: Docusate Sodium 100 MG UDC PT SCH (09:00)
[2024-11-07] MEDS ORDERED: Sennosides 8.6 MG Tab PT SCH (09:00)
[2024-11-07] MEDS ORDERED: Polyethylene Glycol 3350 17 gm PT SCH (09:00)
[2024-11-07] MEDS ORDERED: MethylPREDNISolone Sod Succ 40 MG VIAL IV SCH (09:33)
[2024-11-07 11:44] LABS: Vancomycin, Trough 28.1 ug/mL (5.0-10.0)
[2024-11-07] MEDS ORDERED: Furosemide 10 MG/ML 4ML Vial IV ONE (15:30)
[2024-11-07] MEDS ORDERED: Vancomycin HCL 1,500 MG in NS 250 ML IV SCH (16:00)
--- NOTE | 2024-11-07 18:27 | NUR ---
A/O X1 TO SELF DURING SEDATION VACATION AT 1442, ABLE TO NOD YES/NO, DID NOT FOLLOW COMMANDS WITH BUE BUT NONPURPOSEFUL MOVEMENT, BLE TRACE/FLICKER TO PAINFUL STIMULI. AFEBRILE. SB-NSR, BP WNL, GENERALIZED PITTING EDEMA. REMAINS INTUBATED/SEDATED, SAT - 51 MINUTES, SBT 20 MINS, FAILED BUT IMPROVED FROM PREVIOUS TRIALS. VENT SETTINGS CHANGED TO ACVC, SEE ORDERS. OGT INTACT/SECURE, CTF - VHP INFUSING AT 20ML/HR, FLUSH 30ML/4HR. 0 BM, INCREASED BOWEL REGIMEN THIS AM, ADDED SENNA, COLACE, MIRALAX AND GAVE SUPPOSITORY. PASSING GAS. ABD XR AND CT DONE. CUELLO TO GRAVITY, 40 IV LASIX GIVEN, 2850ML UOP FOR SHIFT. SKIN WITH GENERALIZED REDNESS/MOTTLING, DISCOLORATION TO BLE. PIV X2, MIDLINE TO NOHEMI. PROPOFOL AND PRECEDEX INFUSING PER JAN. ABX - VANC, UNASYN. PROPH - LOVENOX. SAFETY, COMFORT, HYGIENE ADDRESSED.
--- NOTE | 2024-11-07 23:17 | NUR ---
START OF SHIFT PT LYING IN BED, VENTILATED AND SEDATED. PT RESPONSIVE TO PAIN IN ALL EXTREMITIES. CURRENTLY ON 20 MCG/KG/MIN OF PROPOFOL AND 0.5 MCG/KG/HR OF PRECEDEX. PT DOES NOT FOLLOW COMMANDS. PT IN SINUS RHYTHYM WITH STABLE BP. ACVC VENT SETTINGS. OG TUBE FEED AT 20. CUELLO IN PLACE DRAINING YELLOW URINE TO GRAVITY. REPORT GIVEN TO ONCOMING NURSE.
[2024-11-07 23:34] LABS: Bun/Creatinine Ratio 21.2 (12.0-20.0); Calcium, Blood 8.2 mg/dL (8.5-10.1); Creatinine, Blood 0.9 mg/dL (0.60-1.20); Magnesium, Blood 1.9 mg/dL (1.6-2.4); Phosphorus, Blood 3.3 mg/dL (2.5-4.9); Potassium, Blood 4.4 mmol/L (3.5-5.5)
[2024-11-08] VITALS (33 sets, daily range): BP systolic 115–200; BP diastolic 67–155
--- NOTE | 2024-11-08 07:08 | NUR ---
SHIFT SUMMARY PT LYING IN BED, VENTILATED AND SEDATED. PT RESPONSIVE TO PAIN IN ALL EXTREMITIES. CURRENTLY ON 25 MCG/KG/MIN OF PROPOFOL AND 0.5 MCG/KG/HR OF PRECEDEX. PT DOES NOT FOLLOW COMMANDS. FENTANYL USED SEDATION ADJUNCT AND PT GETS AGITATED, CONSISTENTLY, THE END OF THE 3 HR PRN WINDOW APPROACHED. PT IN SINUS RHYTHYM WITH STABLE BP. ACVC VENT SETTINGS. OG TUBE FEED AT 20. ONE LARGE SMEAR DURING SHIFT. CUELLO IN PLACE DRAINING YELLOW URINE TO GRAVITY. REPORT GIVEN TO ONCOMING NURSE.
[2024-11-08] MEDS ORDERED: Lactobacil 2-S.Thermo-Bifido 1 1 Cap PT SCH (09:00)
[2024-11-08] MEDS ORDERED: Ipratropium/Albuterol SulF 2.5-0.5MG/3 ML Amp INH PRN (09:35)
[2024-11-08] MEDS ORDERED: PHENobarbital Sodium 65MG / ML 1ML Vial IV ONE ×2 (10:00→13:15)
[2024-11-08 10:08] LABS: Hematocrit 36.4 % (37.0-53.0); Hemoglobin 12.2 g/dL (13.5-17.5); Mean Corpuscular HGB 35.3 pg (26.0-34.0); Mean Corpuscular HGB Conc 33.5 g/dL (31.5-36.5); Mean Corpuscular Volume 105 fL (80-100); Mean Platelet Volume 10.7 fL (9.1-12.4); Platelet Count 149 K/mm3 (150-400); RDW Coefficient Variation 15.3 % (11.7-14.2); RDW Standard Deviation 59.8 fL (35.1-46.3); Red Blood Cell Count 3.46 M/mm3 (4.30-5.90); White Blood Cell Count 2.73 K/mm3 (4.00-11.30)
[2024-11-08 10:54] LABS: BAND PERCENT MAN 3 % (0-8); BASOPHILS PERCENT MAN 0 % (0-2); Bun/Creatinine Ratio 26.4 (12.0-20.0); Calcium, Blood 8.6 mg/dL (8.5-10.1); Creatinine, Blood 0.76 mg/dL (0.60-1.20); EOSINOPHILS ABSOLUTE MAN 0.02 K/mm3 (0.00-0.68); EOSINOPHILS PERCENT MAN 1 % (0-6); LYMPHOCYTES ABSOLUTE MAN 0.35 K/mm3 (0.84-5.20); LYMPHOCYTES PERCENT MAN 13 % (21-46); MONOCYTES ABSOLUTE MAN 0.32 K/mm3 (0.16-1.47); MONOCYTES PERCENT MAN 12 % (4-13); MYELOCYTE ABSOLUTE MAN 0.02 K/mm3 (0.00-0.00); MYELOCYTE PERCENT MAN 1 % (0-0); NEUTROPHILS ABSOLUTE MAN 1.99 K/mm3 (1.96-9.15); Potassium, Blood 3.9 mmol/L (3.5-5.5); SEG NEUTROPHILS PERCENT MAN 70 % (41-73); TOTAL CELLS COUNTED 100
--- NOTE | 2024-11-08 12:55 | NUR ---
REASSESSMENT PT REMAINS INTUBATED AND SEDATED. DR. RODRIGUEZ ROUNDED AND SWITCHED PT TO PS 8, PEEP 5. PT PULLING VOLUMES OF 400-500. PROPOFOL TITRATED DOWN TO 20 AT THAT TIME. PHENOBARBITAL GIVEN AND THEN PROPOFOL DOWN TO 10. PT WAKES WITH TURNS. LUNGS CLEAR, DIM IN THE BASES. SR, BP STABLE WITH MAP 104. BOWEL TONES HYPOACTIVE, NO BM YET. CUELLO WITH CL YELLOW URINE.
--- NOTE | 2024-11-08 13:36 | NUR ---
EXTUBATE PT CONTINUED TO DO WELL ON SPONTANEOUS WITH PRESSURE SUPPORT. PT IS OPENING EYES SPONTANEOUSLY, SLOW RESPONSE TO COMMANDS TO SQUEEZE HANDS. DR. RODRIGUEZ REASSESSED PT AND GAVE ORDERS TO EXTUBATE, BUT LEAVE PRECEDEX ON. PROPOFOL STOPPED. RT NOTIFIED AND PT EXTUBATED TO 4L/NC. PT'S SPO2 WAS 100% SO TURNED TO 2L/NC, THEN TURNED OFF WHEN PT WAS 96%. AFTER 5 MINTUES ON RA THOUGH PT'S SPO2 WAS 90% SO OXYGEN TURNED BACK ON TO 2L/NC, SPO2 NOW 92%. PT'S RESPONSES SLOW. PRECEDEX TITRATED DOWN.
[2024-11-08] MEDS ORDERED: Labetalol HCL 5 MG/ML 4ML Injection (Single Dose) IV PRN (17:00)
[2024-11-08] MEDS ORDERED: FentaNYL Citrate 50 MCG/ML 2 ML Injection IV PRN (17:05)
--- NOTE | 2024-11-08 17:29 | NUR ---
SHIFT SUMMARY PT'S SEDATION WAS TITRATED DOWN THIS MORNING AND PT WAS ABLE TO BE EXTUBATED THIS AFTERNOON. PRECEDEX WAS TITRATED ALL THE WAY OFF ONCE PT WAS EXTUBATED.SINCE EXTUBATION, PT IS AWAKE, SLOW TO RESPOND. HE IS TRYING TO SAY SOME THINGS BUT SPEECH IS SLURRED AND DIFFICULT TO UNDERSTAND. PT HAS BEEN CALM AND COOPERATIVE. FOLLOWS DIRECTIONS, BUT DELAYED RESPONSE. LUNGS ARE CLEAR. SINUS TACH. HYPERTENSIVE THIS EVENING. PRN HDYRALAZINE GIVEN WITH LITTLE EFFECT. DR. RODRIGUEZ GAVE ORDERS FOR LABETALOL AND ADJUSTED PAIN MEDICATION. NO BM SO FAR THIS SHIFT. CUELLO DRAINING CL YELLOW URINE.
--- NOTE | 2024-11-08 20:42 | NUR ---
START OF SHIFT PT LYING BED S/P EXTUBATION, BREATHING FAST AND IRREGULAR WITH ACCESSORY MUSCLES IN USE. PT SATURATION IS 92% ON 2L NC. LUNGS ARE CLEAR AND DIMINISHED. MUCUS CAN BE HEARD RATTLING IN UPPER AIRWAY; PT HAS WEAK COUGH FOR EXPECTORATION. ETC0S NC ADED DURING ASSESSMENT BY RT FOR PURPOSE OF MONITORING. PT SAYS HE IS SOB AT BASELINE. PT IS SOMNOLENT. ORIENTATION DIFFICULT TO ASSESS DUE TO SEVERELY MUMBLED SPEECH. PT APPEARS ANXIOUS, CONSTANTLY MOVING AND SQRMING IN BED. PT DOES FOLLOW COMMANDS AND MOVES EXTREMITIES. PRECEDEX IS OFF BUT STILL AVAILABLE. HR ELEVATED 115 IN SINUS RHYTHM. BP ALSO ELEVATED AT 171/90 (111). PRN LABETALOL FOR SBP > 190 WILL BE USED NEEDED. NO CHEST PAIN/PRESSURE. ABDOMEN SEVERE DISTENTION AND FIRM TO PALPATION. NO BM FOR 7 DAYS. WILL MEDICATE ABLE GIVEN UNKNOWN SWALLOWING FUNCTION. CUELLO IN PLACE DRAINING YELLOW URINE TO GRAVITY.
[2024-11-09] VITALS (62 sets, daily range): BP systolic 101–202; BP diastolic 63–132
[2024-11-09] MEDS ORDERED: HydrALAZINE HCl 20 MG / ML 1ML Vial IV PRN (01:03)
[2024-11-09 02:54] LABS: Base Excess Venous 5.3 mmol/L; Bicarbonate Venous 28.5 mmol/L (24.0-30.0); PCO2 Venous 44.2 mmHg (38-42); pH Blood Venous 7.43 (7.34-7.37)
[2024-11-09 03:37] LABS: Hematocrit 37.2 % (37.0-53.0); Hemoglobin 12.4 g/dL (13.5-17.5); Mean Corpuscular HGB 34.9 pg (26.0-34.0); Mean Corpuscular HGB Conc 33.3 g/dL (31.5-36.5); Mean Corpuscular Volume 105 fL (80-100); Mean Platelet Volume 10.3 fL (9.1-12.4); Platelet Count 194 K/mm3 (150-400); RDW Coefficient Variation 15.4 % (11.7-14.2); RDW Standard Deviation 59.7 fL (35.1-46.3); Red Blood Cell Count 3.55 M/mm3 (4.30-5.90); White Blood Cell Count 6.03 K/mm3 (4.00-11.30)
[2024-11-09 04:02] LABS: Bun/Creatinine Ratio 21.7 (12.0-20.0); Calcium, Blood 9.1 mg/dL (8.5-10.1); Creatinine, Blood 0.78 mg/dL (0.60-1.20); Magnesium, Blood 1.8 mg/dL (1.6-2.4); Phosphorus, Blood 1.1 mg/dL (2.5-4.9); Potassium, Blood 3.2 mmol/L (3.5-5.5)
--- NOTE | 2024-11-09 06:07 | NUR ---
SHIFT SUMMARY PT LYING IN BED WITH BIPAP ON. PT IS SLEEPY AND CONFUSED. PT HAD MOMENTS OF CLARITY AND ORIENTATION DURING THE NIGHT BUT WORSENED. INITIALLY BIPAP THERAPY WAS POSTPONED DUE TO PREVIOUS RESPONSE, INCLUDING PT NON COMPLIANCE AND PUSHING AIR INTO STOMACH. BIPAP SETTINGS AT 12/8 14/MIN AND 30% WITH GOOD SATURATIONS. PT SOUNDS WHEEZY AND CONTINUES TACHYPNEIC, LABORED BREATHING. HR NSR WITH ELEVATED BP TREATED WITYH PRN LABETALOL AND HYDRALAZINE. SEVERAL LIQUID BROWN BMS THIS SHIFT PROMPTED INSERTION OF RECTAL TUBE. CUELLO DRAINING YELLOW URINE TO GRAVITY. PT IS SALINE [id number]. REPORT GIVEN TO ONCOMING NURSE.
[2024-11-09] MEDS ORDERED: Potassium Chl 20MEQ/Water100ML 100 ML IV SCH ×2 (07:45→13:00)
[2024-11-09] MEDS ORDERED: Potassium Phosphate Dibasic 30 MM in Dextrose 5% 500 ML IV STA (07:51)
[2024-11-09] MEDS ORDERED: Ipratropium/Albuterol SulF 2.5-0.5MG/3 ML Amp INH SCH (09:30)
[2024-11-09] MEDS ORDERED: Potassium Phosphate Dibasic 30 MM in Dextrose 5% 500 ML IV SCH (12:00)
--- NOTE | 2024-11-09 13:44 | NUR ---
INTUBATION 1344- Dr Miranda at bedside. Pt on BiPAP 11/04 amd 30% FiO2. SpO2 99%. Pt minimally responsive. RR 32. 1348- 50 mcg fentanyl 1355- 80 mg propofol 50 mg rocuronium 1358- 8.0 ETT, 26 cm at teeth. Successful intubation. waveform capnography in place ETCO2 46. VSS.
[2024-11-09] MEDS ORDERED: FentaNYL Citrate 50 MCG/ML 2 ML Injection ONE (13:45)
[2024-11-09] MEDS ORDERED: FentaNYL Citrate 50 MCG/ML 2 ML Injection IV ONE (13:50)
[2024-11-09] MEDS ORDERED: propofoL 100 ML IV ONE (13:52)
[2024-11-09] MEDS ORDERED: propofoL 100 ML IV PRN (13:55)
[2024-11-09] MEDS ORDERED: Propofol 10mg/ml 20 ml Vial (Procedural) IV ONE (15:37)
[2024-11-09] MEDS ORDERED: Rocuronium Bromide 10 MG/ML 5ML Injection IV ONE (15:37)
[2024-11-09] MEDS ORDERED: Vancomycin HCL 1,500 MG in NS 250 ML IV SCH (16:00)
[2024-11-09] MEDS ORDERED: Hydrogen Peroxide 1.5 % Solution MT SCH (16:00)
[2024-11-09] MEDS ORDERED: FentaNYL Citrate 50 MCG/ML 2 ML Injection IV PRN (16:15)
[2024-11-09] MEDS ORDERED: Docusate Sodium 100 MG UDC PT PRN (17:06)
[2024-11-09] MEDS ORDERED: Sennosides 8.6 MG Tab PT PRN (17:06)
--- NOTE | 2024-11-09 18:15 | NUR ---
SUMMARY ALL DAY PT HAD BEEN MINIMALLY RESPONSIVE. WOULD SAY "HUH" TO NAME BUT WOULD NOT OPEN EYE'S. NT SUCTIONED A COUPLE TIMES WITH LARGE AMT OF THICK WHITE SPUTUM. WAS ON 4L NC AND SPO2 90-94%. WOB INCREASED THE DAY WENT ON WITH ETCO2 DROPPING FROM 40 TO 23. PT DID NOT LOOK LIKE HE WAS MAINTAINING HIS AIRWAY WELL WITH LARGE AMT OF SECRETIONS AND INCREASE WOB. ALSO WORRIED ABOUT PLACING ON BIPAP WITH INABILITY TO MANAGE SECRETIONS. PT WAS INTUBATED AT 1357. PLACED ON PROPOFOL FOR SEDATION. FENTANYL IN CONJUNTION. HAS RECTAL TUBE DRAINING LIQUID STOOL. NO SIGN OF DISTRESS.
[2024-11-09] MEDS ORDERED: dexmedeTOMIDine 100 ML IV SCH (18:35)
[2024-11-09] MEDS ORDERED: Cetylpyridinium Chloride 1 EA MISC MT SCH (20:00)
[2024-11-10] VITALS (91 sets, daily range): BP systolic 103–166; BP diastolic 59–103
[2024-11-10 04:22] LABS: Bun/Creatinine Ratio 16.5 (12.0-20.0); Calcium, Blood 8.8 mg/dL (8.5-10.1); Creatinine, Blood 0.79 mg/dL (0.60-1.20); Phosphorus, Blood 2.3 mg/dL (2.5-4.9); Potassium, Blood 3.9 mmol/L (3.5-5.5)
--- NOTE | 2024-11-10 06:17 | NUR ---
SHIFT SUMMARY NO ACUTE CHANGES DURING NOC. REMAINS INTUBATED- VENT SETTINGS AC/VC 14/400/8/30%. SEDATED WITH PROPOFOL AT 50MCG/KG/MIN AND PRECEDEX AT 0.3MCG/KG/HR. MEDICATED WITH FENTANYL 50MCG IV X 1 DOSE. PT WITHDRAWS EXTREMITIES TO NOXIOUS STIMULI. NOT FOLLOWING COMMANDS AT THIS TIME. BILATERAL SOFT WRIST RESTRAINTS IN PLACE TO PREVENT SELF-EXTUBATION. MONITOR SHOWS NSR, RATE 60s. BP WNL. AFEBRILE. OG TO LIS- SMALL AMOUNT BILE GREEN DRAINAGE. CUELLO PATENT AND DRAINING TO GRAVITY. PLAN OF CARE ONGOING. WILL REPORT TO ONCOMING RN WHEN AVAILABLE.
[2024-11-10] MEDS ORDERED: Potassium Phosphate Dibasic 30 MM in Dextrose 5% 500 ML IV STA (13:10)
--- NOTE | 2024-11-10 18:45 | NUR ---
SUMMARY PT INTUBATED AND SEDATED WITH PROPOFOL AND PRECEDEX. PT WILL RAISE BROWS TO NAME. WITHDRAWS FROM NOXIOUS STIMULI. WILL MOVE HEAD SIDE TO SIDE BUT NOT VIGOROUSLY ENOUGH TO DISCONNECT FROM VENT LIKE HE HAD THE DAY BEFORE. OG TO LIS. RECTAL TUBE WITH LIQUID STOOL. NO ACUTE CHANGES TODAY.
[2024-11-11] VITALS (88 sets, daily range): BP systolic 128–195; BP diastolic 76–164
[2024-11-11 03:37] LABS: Hematocrit 36.3 % (37.0-53.0); Hemoglobin 12.1 g/dL (13.5-17.5); Mean Corpuscular HGB 34.1 pg (26.0-34.0); Mean Corpuscular HGB Conc 33.3 g/dL (31.5-36.5); Mean Corpuscular Volume 102 fL (80-100); Mean Platelet Volume 10.4 fL (9.1-12.4); Platelet Count 247 K/mm3 (150-400); RDW Coefficient Variation 15.2 % (11.7-14.2); RDW Standard Deviation 57.1 fL (35.1-46.3); Red Blood Cell Count 3.55 M/mm3 (4.30-5.90); White Blood Cell Count 4.25 K/mm3 (4.00-11.30)
[2024-11-11 03:58] LABS: Anion Gap 10 mmol/L (3-11); Blood Urea Nitrogen 14 mg/dL (8-24); Bun/Creatinine Ratio 17.7 (12.0-20.0); CO2, Blood 27 mmol/L (21-32); Chloride, Blood 110 mmol/L (98-108); Creatinine, Blood 0.79 mg/dL (0.60-1.20); Glomerular Filtration Rate 100 (60-); Glucose, Blood 106 mg/dL (70-99); Phosphorus, Blood 3.1 mg/dL (2.5-4.9); Potassium, Blood 3.7 mmol/L (3.5-5.5); Sodium, Blood 143 mmol/L (136-145); Vancomycin, Trough 14.8 ug/mL (5.0-10.0)
[2024-11-11] MEDS ORDERED: Pantoprazole Sodium 40 MG Injection IV SCH (06:00)
--- NOTE | 2024-11-11 06:25 | NUR ---
SHIFT SUMMARY NO ACUTE CHANGES. REMAINS INTUBATED- AC/VC 14/400/8/30%. SEDATED WITH
--- NOTE | 2024-11-11 06:28 | NUR ---
SHIFT SUMMARY NO ACUTE CHANGES. REMAINS INTUBATED- AC/VC 14/400/8/30%. SEDATED WITH PROPOFOL AT 50MCG/KG/MIN AND PRECEDEX AT 0.3MCG/KG/HR. BILATERAL SOFT WRIST RESTRAINTS REMAIN IN PLACE. VSS. HR 60s. AFEBRILE. OG TO LIS WITH BILE GREEN DRAINAGE. CUELLO PATENT AND DRAINING TO GRAVITY. PLAN OF CARE ONGOING. WILL REPORT TO ONCOMING RN WHEN AVAILABLE.
[2024-11-11] MEDS ORDERED: Folic Acid 1 MG TAB PO SCH (09:00)
[2024-11-11] MEDS ORDERED: Thiamine HCl 250 MG in NS 100 ML IV SCH (09:00)
--- NOTE | 2024-11-11 17:58 | NUR ---
Summary. Pt arrived to ICU at approximately 1345. Pt oriented to self/family/surroundings, intermittently confused/disoriented. Dobhoff in place, secured by statlock device and additional tegaderm on cheek. Dobhoff at 66cm. TF started at 30 ml/hr, continuation from medical floor, goal is 35 ml/hr. PIV present in left forearm, additional IV placed in HAMZAH. PT has pacemaker, paced rhythm showing on monitor. Physical reassessment agrees with previously charted assessment. Pt BP slowly trending downward this afternoon, scheduled midodrine given, see emar. PT at bedside since transfer, updated on pt condition. See palliative care notes. No acute events this afternoon, see chart for further details.
--- NOTE | 2024-11-11 18:25 | NUR ---
Summary. Pt remains intubated and sedated. No acute events this shift. VS stable. Propofol off this am for sedation vacation, pt able to nod yes/no to questions and follow simple commands. Propofol restarted for agitation/ventilator compliance, infusing at 35 mcg/kg/min. Precedex infusing at 0.6 mcg/kg/hr. See chart for further details.
--- NOTE | 2024-11-11 20:38 | NUR ---
ASSUMPTION OF CARE: ASSUMED CARE OF PT AT 1900. PT INTUBATED AND SEDATED. OPENS EYES TO VERBAL STIMULI, SHAKES HEAD YES/NO TO SIMPLE COMMANDS AND FOLLOWS SIMPLE DIRECTION. PT VERY AGGITATED AND RESTLESS AND FIGHTING VENTILATOR. ATTEMPTING TO SIT UP AND REACH FOR TUBE. PROPOFOL INCREASED TO 35 MCG/KG/MIN AND PRECEDEX INCREASED TO 1.5 MCG/KG/HR. PT STILL SHAKING HEAD BACK AND FORTH AND KICKING LEGS BUT APPEARS MORE COMFORTABLE. PT ALSO GIVEN PRN DOSE OF FENTANYL. VENT SETTINGS AC/VC 14/400/8.0/30%, SPO2 >92%. ETCO2 28-30. NO SECRETIONS NOTED WHEN SUCTIONED FROM ET TUBE. LUNGS CLEAR/DIM. SOAP GRINDER IN PLACE, SR WITH HR 70'S. SBP 130'S. TUBE FEED INFUSING AT 20ML/HR THROUGH OGT. CUELLO PATENT AND DRAINING TO GRAVITY. RECTAL TUBE DRAINING TO GRAVITY. PIVS INTACT. BED LOW AND LOCKED.
[2024-11-12] VITALS (55 sets, daily range): BP systolic 109–202; BP diastolic 44–130
[2024-11-12 03:31] LABS: Hematocrit 37.2 % (37.0-53.0); Hemoglobin 12.4 g/dL (13.5-17.5); Mean Corpuscular HGB 33.9 pg (26.0-34.0); Mean Corpuscular HGB Conc 33.3 g/dL (31.5-36.5); Mean Corpuscular Volume 102 fL (80-100); Platelet Count 282 K/mm3 (150-400); RDW Coefficient Variation 14.9 % (11.7-14.2); Red Blood Cell Count 3.66 M/mm3 (4.30-5.90); White Blood Cell Count 4.73 K/mm3 (4.00-11.30)
[2024-11-12 03:56] LABS: Bun/Creatinine Ratio 28.1 (12.0-20.0); Calcium, Blood 9.1 mg/dL (8.5-10.1); Creatinine, Blood 0.71 mg/dL (0.60-1.20); Magnesium, Blood 1.9 mg/dL (1.6-2.4); Phosphorus, Blood 2.4 mg/dL (2.5-4.9); Potassium, Blood 3.4 mmol/L (3.5-5.5)
[2024-11-12] MEDS ORDERED: Potassium Phosphate Dibasic 15 MM in Dextrose 5% 250 ML IV ONE (04:05)
--- NOTE | 2024-11-12 05:19 | NUR ---
SHIFT SUMMARY: NO ACUTE EVENTS OVERNIGHT. REMAINS INTUBATED AND SEDATED. PROPOFOL CURRENTLY AT 20 MCG/KG/MIN WITH PRECEDEX AT 0.8 MCG/KG/HR, ATTEMPTED TO TITRATE T/O THE NIGHT SEE FLOWSHEET. PT OPENS EYES TO VERBAL STIMULI AND NODS HEAD. PT AGGITATED WITH MOVEMENT AND BECOMES NON-COMPLIANT WITH VENT, MEDICATED WITH PRN FENTANYL. SBP ELEVATED TO 190-200, MEDICATED WITH PRN LABETOLOL, SBP CURRENTLY 160'S. SR/SB WITH HR 50-60. TUBE FEED AT GOAL THROUGH OGT. VENT SETTINGS UNCHANGED, SPO2 92-96%. PIVS INTACT. CUELLO DRAINING TO GRAVITY. RECTAL TUBE DRAINING TO GRAVITY, BED LOW AND LOCKED.
[2024-11-12] MEDS ORDERED: HydrALAZINE HCl 20 MG / ML 1ML Vial IV PRN (07:55)
[2024-11-12] MEDS ORDERED: AmLODIPine Besylate 5 MG Tab PO SCH (09:00)
--- NOTE | 2024-11-12 09:25 | NUR ---
Mobile of care: Dr. Burnett at bedside. Plan of care for the day discussed. Will wean propofol & do SBT. Patient follows commands/nods appropriately but does attempt to reach for lines/tubes when restraints loosened. RASS of -1 to +1. Blood pressures remain high - discussed with MD - orders for hydralazine prn & scheduled amlodipine. NSR in 50-60s. Oxygenating well on current vent settings. Tejeda, rectal tube, PIV x2 in place. Will continue to monitor.
--- NOTE | 2024-11-12 17:30 | NUR ---
End of shift summary: Precedex at 1 mcgs/kg. Continues to follow commands & nod appropriately but is impulsive & continuously attempts to remove medical equipment without sitter present. Difficult to assess orientation because he is so hoarse. Has been in NSR in 60-70s. Blood pressures stable all day after addition of amlodipine. Extuabated to BiPAP 10/5 30% at 1124. Clear lung sounds & oxygenating well. Tejeda remains in place. Rectal tube discontinued. PIV x2 in place. NPO for now. Will continue to monitor. Sitter present at bs.
[2024-11-12] MEDS ORDERED: Artificial Tear Opth Oint 3.5 GM BOTHEYES SCH (21:00)
[2024-11-12] MEDS ORDERED: LORazepam 2 MG/ML 1ML Injection IV PRN (22:30)
[2024-11-13] VITALS (21 sets, daily range): BP systolic 128–178; BP diastolic 66–118
[2024-11-13] MEDS ORDERED: OLANZapine 10 MG Vial IM ONE (00:45)
[2024-11-13 03:26] LABS: BASOPHILS ABSOLUTE AUTO 0.05 K/mm3 (0.00-0.23); BASOPHILS PERCENT AUTO 1 % (0-2); EOSINOPHILS ABSOLUTE AUTO 0.31 K/mm3 (0.00-0.68); EOSINOPHILS PERCENT AUTO 4 % (0-6); Hematocrit 43.1 % (37.0-53.0); Hemoglobin 14.7 g/dL (13.5-17.5); IMMATURE GRAN PERCENT AUTO 2 % (0-1); LYMPHOCYTES ABSOLUTE AUTO 0.72 K/mm3 (0.84-5.20); LYMPHOCYTES PERCENT AUTO 9 % (21-46); MONOCYTES ABSOLUTE AUTO 0.75 K/mm3 (0.16-1.47); MONOCYTES PERCENT AUTO 9 % (4-13); Mean Corpuscular HGB 34.1 pg (26.0-34.0); Mean Corpuscular HGB Conc 34.1 g/dL (31.5-36.5); Mean Corpuscular Volume 100 fL (80-100); Mean Platelet Volume 10.3 fL (9.1-12.4); NEUTROPHILS ABSOLUTE AUTO 6.19 K/mm3 (1.96-9.15); NEUTROPHILS PERCENT AUTO 75 % (41-73); Platelet Count 356 K/mm3 (150-400); RDW Coefficient Variation 14.2 % (11.7-14.2); RDW Standard Deviation 52.7 fL (35.1-46.3); Red Blood Cell Count 4.31 M/mm3 (4.30-5.90); White Blood Cell Count 8.22 K/mm3 (4.00-11.30)
[2024-11-13 03:54] LABS: Albumin, Blood 2.9 g/dL (3.4-5.0); Albumin/Globulin Ratio 0.7 (0.8-1.8); Bilirubin, Total 0.4 mg/dL (0.1-1.0); Bun/Creatinine Ratio 17.5 (12.0-20.0); Calcium, Blood 9.9 mg/dL (8.5-10.1); Creatinine, Blood 0.69 mg/dL (0.60-1.20); Globulin, Blood 4.3 g/dL (2.2-4.0); Magnesium, Blood 1.7 mg/dL (1.6-2.4); Phosphorus, Blood 2.5 mg/dL (2.5-4.9); Potassium, Blood 3.6 mmol/L (3.5-5.5); Total Protein, Blood 7.2 g/dL (6.4-8.2)
--- NOTE | 2024-11-13 06:08 | NUR ---
SHIFT SUMMARY PATIENT VERY RESTLESS THROUGH NIGHT. ATIVAN AND ZYPREXA ORDERED BUT DID NOT SEEM TO HELP PATIENT'S RESTLESSNESS. PATIENT REACHES HANDS UP TO TRY AND PULL OF BIPAP. CHANGED BIPAP MASKS FROM BIG ONE TO A SMALLER ONE TO SEE IF TAHT HELPED PATIENT. PATIENT STILL TRIED TO PULL THE SMALLER ONE OFF. BILATERAL LUNGS SOUND WHEEZES AND DIMINSHED IN LOWER LOBES. SBP 140-150'S MOST OF NIGHT HAD TO GIVE ONE DOSE OF MED FOR >160 SBP. HR 80-90'S, PRECEDEX RUNNING @ 1 MCG. CUELLO DRAINING TO GRAVITY. HAS A 1:1 SITTER. A&OX2 PATIENT DOES RESPOND TO QUESTIONS HARD TO HEAR ANSWERS BECAUSE OF BIPAP. CALL LIGHT WITHIN REACH
--- NOTE | 2024-11-13 06:31 | NUR ---
UPDATE BIPAP SETTING 09/01/%
--- NOTE | 2024-11-13 08:14 | NUR ---
[place] of care: Patient will follow commands with repeated stimulation. RASS -1 to +1: drowsy but slightly restless in the bed. Precedex weaned to 0.8 mcgs/kg - will continue to titrate down. Does not answer orientation questions when asked but nods appropriately. In NSR 90s, SBP 130s. Weaned from BiPAP to 2L NC in order to provide oral care. Oxygen saturations 90-91%. Clear breath sounds on auscultation. Repositioning self in bed. NPO. Tejeda & bilat arm PIVs in place. Sitter at bs. Will continue to monitor & attempt to wean precedex gtt. Will discuss plan of care with billing analyst when he rounds.
[2024-11-13] MEDS ORDERED: Potassium Phosphate Dibasic 15 MM in Dextrose 5% 250 ML IV STA (09:04)
[2024-11-13] MEDS ORDERED: Mag Sulfate 1 GM/D5% 100ML 100 ML IV STA (09:04)
[2024-11-13] MEDS ORDERED: Metoprolol Tartrate 25 MG Tab PO SCH (14:50)
[2024-11-13] MEDS ORDERED: Tamsulosin HCl 0.4 MG Cap PO SCH (15:30)
--- NOTE | 2024-11-13 17:25 | NUR ---
End of shift summary: Calm & cooperative throughout shift. Follows all commands but remains difficult to understand due to mumbled speech & very hoarse voice. Precedex gtt off at approximately 1100. With this, in ST as high as 120s. Orders received for 12.5 mg metoprolol PO BID. Also received two doses of prn hydralazine for SBP above 160. HR now in 110 range. Has been on 2L NC all day with oxygen saturations in 90-92% range. Remains NPO except for pills per Dr. Burnett. Tejeda discontinued at 11:30 & bladder scanned at 1700 with ~400cc retained - straight cath x1. PIV x2 in place. OOB to chair with lift x2 hours. Resting comfortably at this time, will continue to monitor.
[2024-11-14] VITALS (29 sets, daily range): BP systolic 90–155; BP diastolic 64–100
--- NOTE | 2024-11-14 02:00 | NUR ---
URINE RETENTION/STRAIGHT CATH NO URINE VOID YET THIS SHIFT. BLADDER SCAN DONE AT THIS TIME- 410 MLS OF URINE. STRAIGHT CATH DONE- 450 MLS VANNESSA URINE.
[2024-11-14 04:25] LABS: Albumin, Blood 2.7 g/dL (3.4-5.0); Anion Gap 12 mmol/L (3-11); Blood Urea Nitrogen 19 mg/dL (8-24); Bun/Creatinine Ratio 21.6 (12.0-20.0); CO2, Blood 25 mmol/L (21-32); Calcium, Blood 9.5 mg/dL (8.5-10.1); Chloride, Blood 105 mmol/L (98-108); Creatinine, Blood 0.88 mg/dL (0.60-1.20); Glomerular Filtration Rate 97 (60-); Glucose, Blood 103 mg/dL (70-99); Phosphorus, Blood 2.9 mg/dL (2.5-4.9); Potassium, Blood 3.9 mmol/L (3.5-5.5); Sodium, Blood 138 mmol/L (136-145)
--- NOTE | 2024-11-14 06:08 | NUR ---
SHIFT SUMMARY NO ACUTE CHANGES DURING NOC. SLEPT INTERMITTENTLY. ROUSES EASILY TO VERBAL STIMULI. 1-2 WORD VERBAL RESPONSES NOTED. SPEECH IS MUMBLED. MOVES ALL EXTREMITIES TO COMMANDS. LIMITED MOVEMENT NOTED IN BUEs D/T PAIN AND STIFFNESS. MONITOR SHOWS ST, RATE 110-120. MEDICATED WITH HYDRALAZINE 10MG IV X 1 DOSE FOR SBP >170. PT WAS ON BIPAP 10/5, BUR 12, FIO2 30% T/O MOST OF NOC. 2L NC FOR BREAKS. NPO EXCEPT MEDS WITH SMALL BITES OF APPLESAUCE. BLADDER SCANNED X 4 AND STRAIGHT CATH DONE X 1. PLAN OF CARE ONGOING. WILL REPORT TO ONCOMING RN WHEN AVAILABLE.
[2024-11-14] MEDS ORDERED: Acetaminophen 325 MG TABLET PO PRN (08:00)
[2024-11-14] MEDS ORDERED: OxyCODONE HCL 5 MG TAB PO PRN (08:00)
[2024-11-14] MEDS ORDERED: Labetalol HCL 5 MG/ML 4ML Injection (Single Dose) IV PRN (08:30)
--- NOTE | 2024-11-14 10:38 | NUR ---
DR. TOMAS CALLED AND UPDATED THE PT FAILED HIS SPEECH EVALUATION AND THAT THE SPEECH THERAPIST IS RECCOMENDING NO ORAL MEDICATIONS. DR. CAMARENA AND DR. TOMAS BOTH WANT TO HAVE ANOTHER SPEECH EVALUATION TOMORROW TO SEE IF THERE IS ANY IMPROVMENTS IN THE PT'S MENTATION AND SWALLOW BEFORE RESTARTING A DOBHOFF. DR. TOMAS WILL LOOK AT THE PT'S MEDICATIONS AND SWITCH THEM TO IV. THE PT IS POCKETING PILLS AND APPLE SAUCE IN HIS CHEEKS. WEAK SWALLOW NOTED ON MORNING ASSESSMENT.
[2024-11-14] MEDS ORDERED: Morphine Sulfate 10 MG/ML 1MLSYR IV PRN (10:45)
--- NOTE | 2024-11-14 11:06 | NUR ---
MORNING SUMMARY AT THE BEGINNING OF THE SHIFT THE PT WAS ON THE BIPAP 10/5 @ 35% W/ SP02 >93%. HE WAS SWITCHED OVER TO 3L NC AND SP02 REMAINS > 92%. THE PT DOES COMPLAIN OF SOB, BUT EXPRESSES IT IS NOT NEW OR WORSENING. ON THE MONITOR THE PT HAS BEEN SUSTAINING ST 110'S. BP STABLE. THE PT IS ORIENTED TO HIS NAME ONLY. THE PT DOES NOT FOLLOW MANY COMMANDS AND IS EASILY IRRITABLE. HE IS VERY WEAK T/O AND C/O BUE PAIN. PAIN 9/10 WITH MOVEMENT AND ANY TOUCH. THE PT WAS TRANSFERED TO THE RECLINER VIA 2P LIFT. THE PT WAS BLADDER SCANNED ABOUT 1030 AND IS RETAINING 286 AT THIS TIME. IF THE PT HAS TO BE STRAIGHT CATH'D ONE MORE TIME HE WILL NEED A CUELLO. DR. TOMAS AND DR. CAMARENA AWARE. NO BOWEL MOVMENT THIS MORNING. WHEN ADMINISTERING ORAL MEDICATIONS TO THE PT W/ APPLE SAUCE HE WAS OBSERVED TO BE POCKETING. HE DID GET HIS MORNING MEDICATIONS DOWN. ST SAW THE PT AND WANTS THE PT TO BE NPO INCLUDING MEDICATIONS BECAUSE OF THE EXCESSIVE POCKETING DURING HER ASSESSMENT. SEE PREVIOUS NOTE FOR PLANS W/ NUTRITION. PT PCU STATUS AT THIS TIME.
[2024-11-14] MEDS ORDERED: Nystatin 100,000 Unit/ML Susp 5 ML UDC SS SCH (12:00)
--- NOTE | 2024-11-14 14:14 | NUR ---
SISTER FLORENTIN CALLED AND UPDATED ON CARE. THE PT'S SON KELL'S PHONE NUMBER WAS RECEIVED AND THIS RN LEFT A VOICEMAIL WITH THE SON FOR HIM TO CALL BACK. DR. CAMARENA WOULD LIKE THE PT'S SON TO COME AND SEE HIM TO HELP ASSESS WHAT THE PT'S BASELINE FOR MENTATION IS. SEE NOTES FOR UPDATES.
[2024-11-14] MEDS ORDERED: NS 1,000 ML IV ONE (16:05)
--- NOTE | 2024-11-14 16:34 | NUR ---
THIS NURSE CALLED THE PT'S HOSPITALIST TO ASK ABOUT STARTING FLUIDS D/T THE PT ONLY HAVING 277 IN HIS BLADDER SCANA DN BEING NPO. DR. ESTRELLA WANTED TO START 1L NS AT 100ML/HR. THE PT'S SON KELL CALLED AND WILL BE COMING TO SEE THE PT ZOFIA.
--- NOTE | 2024-11-14 18:26 | NUR ---
INDWELLING CUELLO INSERTED PER ORDER D/T RETENTION. PT TOLERATED IT WELL . THE PT HAS A 14 FR COUDE W/ 10CC STERILE WATER IN THE BALLOON. STERILE TECHNIQUE MAINTAINED. 350CC OUT FIVE MINUTES AFTER INSERTION. CUELLO DRAINING TO GRAVITY.
[2024-11-14] MEDS ORDERED: Metoprolol Tartrate 1 MG/ML 5 ML VIAL IV SCH (21:00)
--- NOTE | 2024-11-14 22:43 | NUR ---
ASSUMPTION OF CARE PT LYING IN BED. ALERT AND ORIENTED TO PERSON , SELF, PLACE BUT IS CONFUSED ABOUT SITUATION AND AND DIFFICULT TO UNDERSTAND SOFT, MUMBLED VOICE. NSR AND STABLE BP. O2 SAT 93% ON 3L NC. LUNGS ARE CLEAR AND TIGHT, WITH MILD TACHYPNEA DEMONSTRATED. DAY NURSE SAID PATIENT IS SUPPOSED TO WEAR BIPAP MASK ALL NIGHT, ALTHOUGH COMPLIANCE HAS BEEN AN ISSUE IN THE PAST. PT DENIES CHST PAIN/PRESSURE, SOB THAT IS DIFFERENT FROM BASELINE SOB, AB PAIN, N/V. AB ID MODERATELY DISTENDED BUT NOT TTP. CUELLO IS DRAINING SMALL URINE TO GRAVITY. PT DOESN'T SEEM TO UNDERSTAND THE CALL LIGHT AND SO I WILL SIT AT A COMPUTER WITH A ADEQUATE VIEW OF THE PATIENT.
[2024-11-15] VITALS (19 sets, daily range): BP systolic 111–199; BP diastolic 73–117
--- NOTE | 2024-11-15 06:04 | NUR ---
SHIFT SUMMARY PT UP IN CHAIR WATCHING TV VS TALKING TO HIMSELF OR WHOEVER WILL LISTEN. PT IS ALERT AND ORIENTED TO SELF, PERSON, PLACE BUT IS OFTEN CONFUSED ABOUT CURRENT SITUATION. HE IS DIFFICULT TO UNDERSTAND DUE TO SOFT MUMBLE. MOVEMENT INTACT. LE STRENGTH IMPAIRED BUT STRONGER THAN UE'S. PT STOOD UP AND PIVOTED TO CHAIR WITH HELP OF 2 NURSES AND FWW. HR NSR VS SINUS TACH. BP STABLE TO ELEVATED- ONE DOSE OF LABETALOL GIVEN LATE IN SHIFT. BIPAP USED FOR 60-70% OF SHIFT AT 10/5 30% 2 TREATMENTS GIVEN DURING SHIFT. OTHERWISE 3L NC PRODUCED >92% SATURATIONS. NO BM DURING SHIFT THOUGH ONE BIG FALSE ALARM- PUT ON BED AVILES TWICE, PT SAID HE DEFECATED. CUELLO IN PLACE FOR RETENTION. POOR URINE OUTPUT TOTAL. PT IN CHAIR WITH CHAIR ALARM IN PLACE. LABS WERE NOT ORDERED AND WILL BE DONE AT 0700
[2024-11-15 08:03] LABS: Calcium, Blood 9.6 mg/dL (8.5-10.1); Creatinine, Blood 0.87 mg/dL (0.60-1.20); Potassium, Blood 4.1 mmol/L (3.5-5.5)
[2024-11-15 08:25] LABS: BASOPHILS PERCENT AUTO 1 % (0-2); EOSINOPHILS ABSOLUTE AUTO 0.23 K/mm3 (0.00-0.68); EOSINOPHILS PERCENT AUTO 2 % (0-6); Hematocrit 41.6 % (37.0-53.0); Hemoglobin 14.1 g/dL (13.5-17.5); IMMATURE GRAN ABSOLUTE AUTO 0.21 K/mm3 (0.00-0.10); IMMATURE GRAN PERCENT AUTO 2 % (0-1); LYMPHOCYTES ABSOLUTE AUTO 0.82 K/mm3 (0.84-5.20); LYMPHOCYTES PERCENT AUTO 6 % (21-46); MONOCYTES ABSOLUTE AUTO 1.28 K/mm3 (0.16-1.47); MONOCYTES PERCENT AUTO 10 % (4-13); Mean Corpuscular HGB 34.1 pg (26.0-34.0); Mean Corpuscular HGB Conc 33.9 g/dL (31.5-36.5); Mean Corpuscular Volume 101 fL (80-100); Mean Platelet Volume 11.2 fL (9.1-12.4); NEUTROPHILS ABSOLUTE AUTO 10.24 K/mm3 (1.96-9.15); NEUTROPHILS PERCENT AUTO 80 % (41-73); Platelet Count 390 K/mm3 (150-400); RDW Coefficient Variation 14.8 % (11.7-14.2); RDW Standard Deviation 54.8 fL (35.1-46.3); Red Blood Cell Count 4.13 M/mm3 (4.30-5.90); White Blood Cell Count 12.88 K/mm3 (4.00-11.30)
[2024-11-15] MEDS ORDERED: Lisinopril 20 MG Tab PO SCH (09:00)
--- NOTE | 2024-11-15 17:27 | NUR ---
SHIFT SUMMARY PT ALERT, ORIENTED X3, CONFUSED AT TIMES. HE MUMMBLES SENTECES AT TIMES THAT DONT MAKE SENSE. COOPERATIVE TO CARE. SKIN DISCOLORATION AND FLAKEY SKIN OF BLE, RIGHT WORSE THAN LEFT. SINUS RHYTHM-SINUS TACH 90'S-100'S, DENIES CP/PRESSURE, SBP STABLE. O2 >92% ON 3L VIA NC. CUELLO CATH IN PLACE, DRAINING TO GRAVITY. ST EVAL TODAY, PT DIET ADVANCED TO MINCED AND MOIST, FEEDER , HE TOLERATED ORAL MEDICATIONS CRUSHED WITH APPLESAUCE. PT REPORTS "I FEEL BETTER THAN YESTERDAY." PT UP TO CHAIR WITH 1 PERSON ASSIST, FWW, AND GAIT BELT. HE DENIES ANY QUESTIONS AT THIS TIME. PROVIDER TO BEDSIDE TO DISCUSS. PER PROVIDER PT ACCEPTED AT [facility]C TO SNF TOMORROW. WILL MONITOR PT AND REPORT TO UROLOGY SURGEON RN.
--- NOTE | 2024-11-15 22:17 | NUR ---
ASSUMPTION OF CARE PT LYING IN BED. ALERT AND ORIENTED X 4, BUT CONFUSED AT TIMES. DIFFICULT TO UNDERSTAND SOFT, MUMBLED VOICE. NSR AND STABLE TO ELEVATED BP- LABETALOL AND HYDRALAZINE PRN. O2 SAT 97% ON 3L NC. LUNGS ARE CLEAR. PT DENIES CHEST PAIN/PRESSURE, OR SOB THAT IS DIFFERENT FROM BASELINE SOB, AB PAIN, N/V. AB ID MODERATELY DISTENDED BUT NOT TTP. CUELLO IS DRAINING SMALL VANNESSA URINE TO GRAVITY. PT DOESN'T SEEM TO UNDERSTAND THE CALL LIGHT. WILL MONITOR VISUALLY MUCH OF SHIFT.
[2024-11-16] VITALS (19 sets, daily range): BP systolic 86–180; BP diastolic 35–143
--- NOTE | 2024-11-16 05:35 | NUR ---
SHIFT SUMMARY PT SITTING UP IN CHAIR LISTENING TO REQUESTED MUSIC ON YOUTUBE. PT IS ALERT WITH VARIABLE ORIENTATION, FROM X 4 TO X 2, OCCASIONALLY NOT KNOWING WHERE HE IS, WORSE WHEN HE AWOKE FROM A DEEP SLEEP AROUND 0400. HR SINUS RHYTHM HANGING OUT AROUND 100, WITH STABLE BPS AROUND 120-130 SYSTOLIC. SATURATION IS >95% ON 3L NC. NO CHEST PAIN/PRESSURE, SOB, N/V, DIZZINESS. AB NON TENDER. NO BMS DURING SHIFT, SEVERAL SMALL SMEARS. CLAMP PLACED ON CUELLO AT TIME OF WRITING THIS IN ANTICIPATION OF DISCHARGE TO [facility] SOMETIME TODAY. PT LEFT IN CHAIR WITH CHAIR ALARM IN PLACE AND CALL LIGHT HANDY.
--- NOTE | 2024-11-16 06:14 | NUR ---
UPDATE- CUELLO CLAMPED FOR BLADDER TRAINING AT 0522
[2024-11-16 06:36] LABS: BASOPHILS ABSOLUTE AUTO 0.08 K/mm3 (0.00-0.23); BASOPHILS PERCENT AUTO 1 % (0-2); EOSINOPHILS ABSOLUTE AUTO 0.37 K/mm3 (0.00-0.68); EOSINOPHILS PERCENT AUTO 4 % (0-6); Hematocrit 40.1 % (37.0-53.0); Hemoglobin 13.5 g/dL (13.5-17.5); IMMATURE GRAN ABSOLUTE AUTO 0.12 K/mm3 (0.00-0.10); IMMATURE GRAN PERCENT AUTO 1 % (0-1); LYMPHOCYTES ABSOLUTE AUTO 0.81 K/mm3 (0.84-5.20); LYMPHOCYTES PERCENT AUTO 9 % (21-46); MONOCYTES ABSOLUTE AUTO 1.05 K/mm3 (0.16-1.47); MONOCYTES PERCENT AUTO 12 % (4-13); Mean Corpuscular HGB Conc 33.7 g/dL (31.5-36.5); Mean Corpuscular Volume 101 fL (80-100); Mean Platelet Volume 10.5 fL (9.1-12.4); NEUTROPHILS ABSOLUTE AUTO 6.51 K/mm3 (1.96-9.15); NEUTROPHILS PERCENT AUTO 73 % (41-73); Platelet Count 385 K/mm3 (150-400); RDW Coefficient Variation 14.7 % (11.7-14.2); RDW Standard Deviation 55.6 fL (35.1-46.3); Red Blood Cell Count 3.97 M/mm3 (4.30-5.90); White Blood Cell Count 8.94 K/mm3 (4.00-11.30)
[2024-11-16 06:51] LABS: Albumin, Blood 2.6 g/dL (3.4-5.0); Albumin/Globulin Ratio 0.6 (0.8-1.8); Bilirubin, Total 0.8 mg/dL (0.1-1.0); Calcium, Blood 9.8 mg/dL (8.5-10.1); Creatinine, Blood 0.87 mg/dL (0.60-1.20); Globulin, Blood 4.7 g/dL (2.2-4.0); Potassium, Blood 3.5 mmol/L (3.5-5.5); Total Protein, Blood 7.3 g/dL (6.4-8.2)
[2024-11-16] MEDS ORDERED: Ipratropium/Albuterol SulF 2.5-0.5MG/3 ML Amp INH PRN (15:50)
--- NOTE | 2024-11-16 16:09 | NUR ---
PT ALERT AND ORIENTED TO SELF, REORIENTS TO LOCATION AND SITUATION. INTERACTS MOSTLY APPROPRIATELY BUT DOES CONTINUE TO DEMONSTRATE SOME CONFUSION/DISORIENTATION. AFEBRILE. VS STABLE, NSR-ST 90S TO LOW 100S, BPS 120/90S. 3LNC, 93%. DIET ADVANCED WITH SPEECH THERAPY TODAY FROM MINCED/MOIST TO SMALL & BITE SIZED. TREMOR WITH FINE MOTOR MOVEMENTS SHOWS SOME IMPROVEMENT TODAY. PATIENT ABLE TO FEED SELF SOME ITEMS/BITES BUT IS STILL PRIMARILY ASSIST WITH MEALS. CUATE DC'Lucero AT 1300 IN PREPARATION FOR DISCHARGE TO SNF. FAMILY UPDATED TO STATUS AND PLAN OF CARE. PATIENT SPOKE WITH HIS MOTHER THIS AFTERNOON. PIVX2 TO LEFT ARM. SAFETY, COMFORT, HYGIENE ADDRESSED. AWAITING TX TO PCU.
--- NOTE | 2024-11-16 18:03 | NUR ---
CARE ASSUMPTION PT TRANSFERRED FROM ICU 04 TO PCU 10 VIA WHEELCHAIR. PT AMBULATED FWW SBA FROM WHEELCHAIR TO BED. PT ORIENTED TO SELF. SP02>90% ON 3L NC. DENIES SOB. TELEMETRY SHOWS SINUS TACH, HR 100'S, VSS. URINAL GIVEN, PT STATES NO NEED TO VOID AT THIS MOMENT. WAITING FOR POST CUELLO REMOVAL VOID PER REPORT. PT DENIES PAIN. ORIENTED TO ROOM, CALL LIGHT. BED ALARM ON. EATING DINNER SITTING UP IN BED. CALL LIGHT IN REACH.
[2024-11-17 03:48] VITALS: BP 154/81
[2024-11-17 09:59] VITALS: BP 105/70
[2024-11-17 11:05] VITALS: BP 101/61
--- NOTE | 2024-11-17 19:12 | NUR ---
SHIFT SUMMARY PT IS A&O TO SELF, SOMETIMES PLACE. HE IS PLEASANTLY CONFUSED. VSS, SR 80-90'S ON 2L NC. C/O DISCOMFORT BUT REFUSED THE NEED FOR INTERVENTION. X1 ASSIST WITH FWW. TOLERATING A SOFT AND BITE SIZE DIET, POOR APPETITE. PT VOIDED IN TOILET ALSO WAS INCONTINENT IN HIS BRIEF. NO BM THIS SHIFT, DID HAVE A SMEAR. WAITING FOR BED ON MEDICAL FLOOR. BED IN LOWEST POSITION, CALL LIGHT WITHIN REACH. BED/CHAIR ALARM SET FOR PT'S SAFETY. 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
[2024-11-17 20:10] VITALS: BP 135/79
[2024-11-17 23:17] VITALS: BP 127/81
--- NOTE | 2024-11-18 00:20 | NUR ---
ASSUMPTION OF CARE NEURO: PT KNOWS THEY ARE IN A HOSPITALS NAME THAT STARTS WITH AN "M". ORIENTED TO SELF. FORGETFUL AND OVERESTIMATES ABILITIES WHEN AMBULATING. EQUAL STRENGTH THROUGHOUT. UNSTEADY GAIT. PERRLA. POOR SLEEP- SLEEP/WAKE CYCLE MIXED UP. CARDIAC: NSR. NO EDEMA LUNGS: PT DID POORLY WITH THE IS, ONLY ABLE TO PULL AT MOST 500ML WHEN YESTERDAY THEY EASILY COMPLETED 1500ML. TIGHT SOUNDING LUNG SOUNDS. REMAINS ON 3LNC. GI/; DISTDENED ABD, PT STATES NORMAL. HYPOACTIVE TONES. REFUSING BOWEL CARE THIS SHIFT.
[2024-11-18 03:19] VITALS: BP 125/66
[2024-11-18 07:24] VITALS: BP 116/81
[2024-11-18 11:09] VITALS: BP 139/93
[2024-11-18 15:43] VITALS: BP 128/84
[2024-11-18] MEDS ORDERED: Pantoprazole Sodium 20 MG Tab PO SCH (16:30)
--- NOTE | 2024-11-18 18:07 | NUR ---
SHIFT SUMMARY PT A&Ox3, COMMUNICATES NEEDS APPROPRAITELY, DOES NOT ALWAYS USE CALL LIGHT. FORGETFUL AND CONFUSED TIMES, IMPROVED THROUGHOUT SHIFT. BP STABLE, SINUS 90's, DENIES CP/PRESSURE. SpO2> 92% RA WHILE AWAKE, 2L VIA NC WHILE ASLEEP, REPORTS INTERMITTENT SOB. SBA IN ROOM. CONTINENT OF URINE AND BOWEL. NO C/O PAIN. NO OTHER EVENTS, WILL REPORT TO ONCOMING RN.
[2024-11-18 20:20] VITALS: BP 145/106
--- NOTE | 2024-11-18 23:01 | NUR ---
ASSUMPTION OF CARE- NO ACUTE CHANGES NEURO: ALERT TO SELF AND LOCATION. PT STILL UNSURE OF DATE. PERRLA. EQUAL STRENGTH IN EXTREMETIES. NO NUMBNESS OR TINGLING. LUNGS: ON 3L NC. TIGHT LUNG SOUNDS IN THE UPPER LOBES, DIMINISHED IN THE BASES. CARDIAC: ON TELE, OTHERWISE WNL. GI/: DISTENDED ABD, NORMAL PER PT. BM TODAY. USING URINAL. SKIN: JAAJ BLE.
[2024-11-19 00:08] VITALS: BP 120/74
[2024-11-19 04:11] VITALS: BP 107/67
[2024-11-19 07:37] VITALS: BP 127/71
[2024-11-19] MEDS ORDERED: AMLO5 PO (10:22)
[2024-11-19] MEDS ORDERED: B-1100 M1 PO (10:23)
[2024-11-19] MEDS ORDERED: FOLI1 PO (10:23)
[2024-11-19] MEDS ORDERED: TAMS.4ER PO (10:23)
--- NOTE | 2024-11-19 11:05 | NUR ---
GONE OVER DISCHARGE INSTRUCTION, PATIENT GETTING DRESSED AND TELE REMOVED. AWAITING TRANSPORT.
--- NOTE | 2024-11-19 12:21 | NUR ---
DISCHARGE NOTE: PATIENT LEFT VIA TRANSPORT SERVICE TO [facility]. IV WERE TAKEN OUT AND WRAPPED WITH COBAND W/ GAUZE. PATIENT TOOK ALL PERSONAL BELONGINGS AND DISCHARGE PACKET WAS GIVEN PATIENT ALONG WITH PACKET GIVEN TO TRANSPORTER. PATIENT LEFT VIA WHEELCHAIR ON TWO LITERS OXYGEN AND TRANSPORTER AWARE OF THE DROPLET PRECAUTION.
--- NOTE | 2024-11-19 12:28 | NUR ---
REPORT WAS GIVEN TO RECEIVING NURSE AT [facility].
== END 2024-11-19 12:09 | DRG 896 ==
LOC: ER 19:52 → ICUE 11-01 04:01 → PCU 11-01 04:01 → MEDS 11-01 04:01 → ICUE 11-02 20:35 → PCU 11-16 17:45
PROVIDERS: Family Medicine; Internal Medicine; Internal Medicine Critical Care Medicine; Student in an Organized Health Care Education/Training Program; ADMIT Student in an Organized Health Care Education/Training Program
PROC: 5A09557 Assistance with Respiratory Ventilation, Greater than 96 Consecutive Hours, Continuous Positive Airway Pressure (ICD-10-PCS; 2024-11-03)
PROC: 5A1955Z Respiratory Ventilation, Greater than 96 Consecutive Hours (ICD-10-PCS; principal; 2024-11-04)
PROC: 0BH17EZ Insertion of Endotracheal Airway into Trachea, Via Natural or Artificial Opening (ICD-10-PCS; 2024-11-04)
PROC: 0DH67UZ Insertion of Feeding Device into Stomach, Via Natural or Artificial Opening (ICD-10-PCS; 2024-11-04)
PROC: 4A033R1 Measurement of Arterial Saturation, Peripheral, Percutaneous Approach (ICD-10-PCS; 2024-11-04)
PROC: 5A1955Z Respiratory Ventilation, Greater than 96 Consecutive Hours (ICD-10-PCS; 2024-11-09)
PROC: 0BH17EZ Insertion of Endotracheal Airway into Trachea, Via Natural or Artificial Opening (ICD-10-PCS; 2024-11-09)
DX: F10.239 Alcohol dependence with withdrawal, unspecified (principal); G93.41 Metabolic encephalopathy; J96.01 Acute respiratory failure with hypoxia; J96.02 Acute respiratory failure with hypercapnia; J69.0 Pneumonitis due to inhalation of food and vomit; J15.212 Pneumonia due to Methicillin resistant Staphylococcus aureus; N17.9 Acute kidney failure, unspecified; B37.0 Candidal stomatitis; J44.0 Chronic obstructive pulmonary disease with (acute) lower respiratory infection; J44.1 Chronic obstructive pulmonary disease with (acute) exacerbation; E87.1 Hypo-osmolality and hyponatremia; E66.9 Obesity, unspecified; N28.9 Disorder of kidney and ureter, unspecified; I11.0 Hypertensive heart disease with heart failure; R33.9 Retention of urine, unspecified; K59.00 Constipation, unspecified; I50.9 Heart failure, unspecified; F15.10 Other stimulant abuse, uncomplicated; F17.210 Nicotine dependence, cigarettes, uncomplicated; Z78.1 Physical restraint status; Z79.899 Other long term (current) drug therapy; Z87.81 Personal history of (healed) traumatic fracture; Z71.6 Tobacco abuse counseling; Z71.41 Alcohol abuse counseling and surveillance of alcoholic
CPT/HCPCS: 31500; 36415; 36600; 51701; 51702; 71045; 74018; 74176; 76705; 80048; 80053; 80069; 80202; 81001; 82140; 82248; 82570; 82607; 82746; 82803; 82947; 83735; 83880; 84100; 84145; 84300; 85014; 85018; 85025; 85027; 87070; 87077; 87086; 87147; 87186; 87205; 92526; 92610; 93005; 93010; 93306; 94002; 94003; 94640; 94644; 94660; 94664; 94760; 94762; 96374; 97110; 97162; 97530; 99285-25; A9270; C1751; J0295; J0360; J0696; J1630; J1650; J1940; J2060; J2250; J2470; J2560; J2704; J2919; J3010; J3370; J3411; J3475; J3480; J7030; J7040; J7050; J7060; J7120

== ENCOUNTER 2024-12-09 11:40 | Emergency (ER) | payer OTHER ==
[~2024-12-09] VITALS: Ht 172.7 cm; Wt 81.7 kg
[~2024-12-09 11:40] MED LIST changes: +AMLO5 PO; +B-1100 M1 PO; +DULERA 200 MCG-13 GM INH; +FOLI1 PO; +LISI20 PO; +MONT10T PO; +PROAIR RESPICL90 MCG INH; +TAMS.4ER PO
[2024-12-09] MEDS ORDERED: Ketorolac Tromethamine 15mg Vial IV ONE (12:40)
[2024-12-09] MEDS ORDERED: Ondansetron HCl 2 MG / ML 2ML Vial IV ONE (12:45)
[2024-12-09 13:02] VITALS: BP 132/90
[2024-12-09 14:10] LABS: BASOPHILS ABSOLUTE AUTO 0.08 K/mm3 (0.00-0.23); BASOPHILS PERCENT AUTO 1 % (0-2); EOSINOPHILS ABSOLUTE AUTO 0.12 K/mm3 (0.00-0.68); EOSINOPHILS PERCENT AUTO 1 % (0-6); Hematocrit 39.2 % (37.0-53.0); Hemoglobin 13.4 g/dL (13.5-17.5); IMMATURE GRAN ABSOLUTE AUTO 0.08 K/mm3 (0.00-0.10); IMMATURE GRAN PERCENT AUTO 1 % (0-1); LYMPHOCYTES ABSOLUTE AUTO 1.13 K/mm3 (0.84-5.20); LYMPHOCYTES PERCENT AUTO 9 % (21-46); MONOCYTES ABSOLUTE AUTO 0.51 K/mm3 (0.16-1.47); MONOCYTES PERCENT AUTO 4 % (4-13); Mean Corpuscular HGB 32.8 pg (26.0-34.0); Mean Corpuscular HGB Conc 34.2 g/dL (31.5-36.5); Mean Corpuscular Volume 96 fL (80-100); Mean Platelet Volume 8.9 fL (9.1-12.4); NEUTROPHILS ABSOLUTE AUTO 10.86 K/mm3 (1.96-9.15); NEUTROPHILS PERCENT AUTO 85 % (41-73); Platelet Count 471 K/mm3 (150-400); RDW Coefficient Variation 15.3 % (11.7-14.2); RDW Standard Deviation 53.6 fL (35.1-46.3); Red Blood Cell Count 4.08 M/mm3 (4.30-5.90); White Blood Cell Count 12.78 K/mm3 (4.00-11.30)
[2024-12-09 14:28] LABS: Albumin, Blood 3.3 g/dL (3.4-5.0); Albumin/Globulin Ratio 0.7 (0.8-1.8); Bilirubin, Total 0.4 mg/dL (0.1-1.0); Bun/Creatinine Ratio 10.6 (12.0-20.0); Calcium, Blood 9.5 mg/dL (8.5-10.1); Creatinine, Blood 0.75 mg/dL (0.60-1.20); Globulin, Blood 4.9 g/dL (2.2-4.0); Total Protein, Blood 8.2 g/dL (6.4-8.2)
== END 2024-12-09 16:39 ==
LOC: ER 11:40
PROVIDERS: Student in an Organized Health Care Education/Training Program
DX: S01.01XA Laceration without foreign body of scalp, initial encounter (principal); R07.81 Pleurodynia; W18.39XA Other fall on same level, initial encounter; J44.89 Other specified chronic obstructive pulmonary disease; F17.210 Nicotine dependence, cigarettes, uncomplicated; Z79.899 Other long term (current) drug therapy
CPT/HCPCS: 12042; 70450; 80053; 85025; 93005; 93010; 99284-25